=== PATIENT | female | born 2000 | race Two or more races ===

== ENCOUNTER 2020-07-26 09:29 | Emergency (ER) | payer OTHER, BC, MEDICAID, SELFPAY ==
--- NOTE | ~2020-07-26 | CT_ITS ---
EXAMINATION: CT HEAD WITHOUT CONTRAST CLINICAL INFORMATION: Left head injury. COMPARISON: None TECHNIQUE: Contiguous axial imaging was performed from the skull base to vertex without intravenous administration of contrast. Additional 2-D coronal and sagittal reformatted images are generated on the CT workstation and uploaded to PACS. This CT examination was performed using dose optimization techniques as appropriate, variously including the following: *Automated exposure control *Adjustment of mA and/or kV according to patient size (this includes techniques or standardized protocols for targeted exams where dose is matched to indication/reason for exam; i.e. extremities or head) *Use of iterative reconstruction technique DLP: 620 mGy-cm FINDINGS: There is no intracranial hemorrhage, hematoma, or extra-axial fluid collection. The ventricles are normal in size. There is no hydrocephalus, edema, or mass effect. The may-white matter differentiation appears symmetric. There is no visible acute territorial infarct or mass lesion. The calvarium appears intact. There is no pneumocephalus or orbital emphysema. The visualized sinuses and middle ears and mastoid air cells show no significant mucosal thickening. There are no air-fluid levels. CT/CT head/brain wo con IMPRESSION: Normal noncontrast CT head.
[2020-07-26 09:47] VITALS: BP 119/81; PULSE 99; RESP 18; TEMP 36.6; O2SAT 97; BMI 32.9
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
[2020-07-26 10:08] LABS: UPreg QC Valid YES; Urine Pregnancy NEGATIVE (NEGATIVE)
== END 2020-07-26 10:58 | disposition home or self-care (01) ==
LOC: HO.ED 09:55
PROVIDERS: Emergency Provider Emergency Medicine; PCP Pediatrics
DX: S06.0X0A Concussion without loss of consciousness, initial encounter (principal); S09.90XA Unspecified injury of head, initial encounter; Y00.XXXA Assault by blunt object, initial encounter; Y93.89 Activity, other specified; Y92.218 Other school as the place of occurrence of the external cause; Y99.0 Civilian activity done for income or pay
CPT/HCPCS: 70450; 81025; 99283; 99284

== ENCOUNTER 2020-08-01 15:40 | Emergency (ER) | payer BC, MEDICAID, SELFPAY ==
[2020-08-01 16:00] VITALS: BP 118/72; PULSE 78; RESP 18; TEMP 36.3; O2SAT 98; BMI 32.9
[2020-08-01 18:00] VITALS: BP 120/84; PULSE 91; RESP 14
--- NOTE | 2020-08-01 19:21 | ED_ITS ---
HPI - Headache General Chief Complaint: Headache Stated Complaint: HEAD PRESSURE Time Seen by Provider: 08/01/20 19:07 Source: patient Mode of arrival: ambulatory Limitations: no limitations History of Present Illness HPI Narrative: 20-year-old female with recent head injury, evaluated in the emergency department on 07/26/[address] with a negative head CT with suspected concussion presents with intermittent head pressure. Patient states that the medications that she was given are not effective. She does not describe any fevers, chills, changes in vision, loss of balance, symptoms indicating cauda equina, nausea, vomiting, diarrhea, constipation, difficulty moving extremities, chest pain or pressure, palpitations, shortness of breath, or any other concerning symptoms. MD elicited complaint: headache Pertinent past history: recent trauma Onset (ago): week(s) Location: left Severity: moderate Quality & Timing: aching, throbbing, intermittent and pressure Relieving factors: nothing Associated symptoms: none Treatments prior to arrival: acetaminophen, ibuprofen and antiemetic Related Data Previous Rx's Medication Instructions Recorded cyclobenzaprine 10 mg PO TID PRN #14 tab 07/26/20 ibuprofen 600 mg PO Q6H PRN #30 tab 07/26/20 ondansetron 4 mg PO Q8H PRN #20 tab 07/26/20 hifauqwjpn-kellbpnnwqwny-rdvp 2 cap PO Q4-6H PRN #14 cap 08/01/20 [Fioricet] Allergies Allergy/AdvReac Type Severity Reaction Status Date / Time No Known Allergies Allergy Verified 07/26/20 09:50 Review of Systems Review of Systems: Constitutional: Positive headache, No Fever, No Chills ENT/Mouth: No Ear Pain, No Hoarseness, No sore throat Eyes: No Eye Pain, No Swelling, No Redness, No Foreign Body Cardiovascular: No Chest Pain, No SOB Respiratory: No Cough, No Dyspnea Gastrointestinal: No Nausea, No Vomiting, No Diarrhea, No abdominal Pain Genitourinary: No Dysuria, No Hematuria Musculoskeletal: No joint pain, No Myalgias, No Joint Swelling Skin: No Skin lacerations, No rash Neuro: No Weakness, No Numbness, No Paresthesias, No Loss of Consciousness, No Dizziness Psych: No Anxiety/Panic, No Depression Heme/Lymph: no easy bruising, no Lymphadenopathy Endocrine: No Polyuria, No Polydipsia Yes all other systems are reviewed and are negative [facility] Past Medical History Attestation statement: The following information was validated with the patient. Source: old records reviewed Medical History No known health problems Surgical History H/O eye surgery Social History Social History Smoking Status: Never smoker Advance Directives: No Advance Directives Information Provided: Yes Physical Exam Vital Signs: Vital Signs: Last Vital Signs Temp 90 F L 08/01/20 19:34 Pulse 90 08/01/20 19:34 Resp 16 08/01/20 19:34 BP 156/82 H 08/01/20 19:34 Pulse Ox 99 08/01/20 19:34 Body Mass Index 32.9 Appearance: Alert. Oriented X3. No acute distress. Head: Normal external exam. Normocephalic. Atraumatic. No Pedersen signs noted. No raccoon eyes noted Eyes: PERRLA. EOMI. Conjunctiva and sclera normal. Eyelids normal. ENT: TM's Normal. Pharynx normal. Uvula midline. Moist mucous membranes. No trismus noted. No drooling noted. No muffled voice noted. Neck: Normal inspection. Neck supple. No adenopathy. Thyroid Normal. No meningeal signs. CVS: Normal heart rate and rhythm. Heart sound normal. No murmurs noted. Pulses equal to all extremities. Respiratory: No respiratory distress. Painless inspiration. Breath sounds normal. No wheezes/rales/rhonchi noted. Chest nontender. No accessory muscle usage noted or decreased air movement noted. Abdomen: Soft and nontender. Bowel sounds normal in all 4 quadrants. No distention noted. No organomegaly noted. No visible injury noted. Back: No CVA tenderness. Full range of motion noted. Skin: Skin warm and dry. Normal skin color. Normal skin turgor. No rashes/lesions/lacerations noted. Extremities: No lower extremity edema. Extremities exhibit normal range of motion. Extremities nontender. Neuro: cranial nerves 2-12 intact, no focal neural deficits, strength 5/5 to all extremities, No motor deficit. No sensory deficit. Patellar Reflexes normal. NIH Stroke Scale Internal: Initial- Upon Arrival Level of Consciousness: Alert Level of Consciousness Questions: Answers both questions correctly Level of Consciousness Commands: Performs both tasks correctly Best Gaze: Normal Visual: No visual loss Facial Palsy: Normal Motor Arm (Right): No drift Motor Arm (Left): No drift Motor Leg (Right): No drift Motor Leg (Left): No drift Limb Ataxia: Absent Sensory: Normal Best Language: No aphasia Dysarthia: Normal Extinction and Inattention: No abnormality Score: 0 Course Course Course Narrative: 20-year-old female presents with persistent headache after head injury that occurred on 07/26/[address] scan. Patient is neurologically intact, has a negative Romberg, cranial nerves 2-12 intact, NIH stroke scale is 0. Symptoms most likely consistent with post concussive syndrome. Will provide Fioricet for headache. Patient is advised to follow up with work connection post concussive syndrome, she did try to get into her primary care physician's office however since this is a work related injury they would not accept her. Patient agrees with plan of care, verbalized understanding of discharge instructions and agrees to discharge home. MDM - Headache Differential Diagnosis Differential diagnosis: Likely migraine, tension headache, headache and postconcussion syndrome Medical Records Attestation: I reviewed the patient's medical records. Discharge Plan Discharge Clinical Impression: Postconcussion syndrome Patient Disposition: Home, Self-Care Instructions: Post Concussion Syndrome (ED), Chronic Post Traumatic Headache (ED) Additional Instructions: Please follow-up with work connection for post concussive syndrome. I prescribed Fioricet for for headaches as your Tylenol, Motrin, and Flexeril are ineffective. Thank you for choosing this emergency department for evaluation. Please follow-up with primary care physician as needed. Return to the emergency department for any new, concerning, or worsening symptoms. Prescriptions: New aefntvbyyr-ndkgshialhefw-guat [Fioricet] 50-300-40 mg capsule 2 cap PO Q4-6H PRN (Reason: pain) Qty: 14 RF: 0 No Action cyclobenzaprine 10 mg tablet 10 mg PO TID PRN (Reason: muscle spasm) Qty: 14 RF: 0 ibuprofen 600 mg tablet 600 mg PO Q6H PRN (Reason: pain) Qty: 30 RF: 0 ondansetron 4 mg tablet,disintegrating 4 mg PO Q8H PRN (Reason: nausea and vomiting) Qty: 20 RF: 0 Referrals: Cristi Robbins MD [Physician] - 2 days (Post concussive syndrome, 1st evaluated on 07/26/2020) Stand Alone Forms: Work/School Release Interventions: ED Discharge Assessment Last Done: 08/01/20 19:39 Discharge Date/Time: 08/01/20 19:40
[2020-08-01] MEDS: Butalb/Acetamin/Caff 50/325/40 TABLET 1 TAB PO (19:26)
[2020-08-01 19:34] VITALS: BP 156/82; PULSE 90; RESP 16; TEMP 32.2; O2SAT 99
== END 2020-08-01 19:40 | disposition home or self-care (01) ==
PROVIDERS: Emergency Provider Internal Medicine
DX: Z04.2 Encounter for examination and observation following work accident (principal); F07.81 Postconcussional syndrome; R51.9 Headache, unspecified
CPT/HCPCS: 99283; 99284

== ENCOUNTER → 2020-08-06 11:10 | Outpatient (BNVA) | payer OTHER, SELFPAY | PROVIDERS: Visit Provider Physician Assistant | DX: S00.81XD Abrasion of other part of head, subsequent encounter (principal); W22.8XXD Striking against or struck by other objects, subsequent encounter | CPT/HCPCS: 99203 ==

== ENCOUNTER → 2020-08-14 11:24 | Outpatient (BNVA) | payer OTHER, SELFPAY | PROVIDERS: Visit Provider Internal Medicine | DX: S06.0X9D Concussion with loss of consciousness of unspecified duration, subsequent encounter (principal); X58.XXXD Exposure to other specified factors, subsequent encounter; R51.9 Headache, unspecified | CPT/HCPCS: 99213 ==

== ENCOUNTER → 2020-08-21 11:41 | Outpatient (BNVA) | payer OTHER, SELFPAY | PROVIDERS: Visit Provider Physician Assistant | DX: S06.9X0D Unspecified intracranial injury without loss of consciousness, subsequent encounter (principal); X58.XXXD Exposure to other specified factors, subsequent encounter | CPT/HCPCS: 99213 ==

== ENCOUNTER → 2020-08-29 13:13 | Outpatient (BNVA) | payer OTHER, SELFPAY | PROVIDERS: Visit Provider Physician Assistant | DX: S06.0X9D Concussion with loss of consciousness of unspecified duration, subsequent encounter (principal); X58.XXXD Exposure to other specified factors, subsequent encounter | CPT/HCPCS: 99213 ==

== ENCOUNTER → 2020-09-12 15:14 | Outpatient (BNVA) | payer OTHER, SELFPAY | PROVIDERS: Visit Provider Physician Assistant | DX: S09.90XD Unspecified injury of head, subsequent encounter (principal); X58.XXXD Exposure to other specified factors, subsequent encounter | CPT/HCPCS: 99213 ==

== ENCOUNTER → 2020-09-24 15:11 | Outpatient (BNVA) | payer OTHER, SELFPAY | PROVIDERS: Visit Provider Physician Assistant | DX: S06.9X0D Unspecified intracranial injury without loss of consciousness, subsequent encounter (principal); X58.XXXD Exposure to other specified factors, subsequent encounter | CPT/HCPCS: 99213 ==

== ENCOUNTER 2021-12-16 13:55 | Outpatient (REF) | payer BC, SELFPAY ==
[2021-12-16 14:42] LABS: Influenza A PCR NEGATIVE (Negative); Influenza B PCR NEGATIVE (Negative); Resp Syncy Virus RNA Qual PCR NEGATIVE (Negative); SARS COV2 PCR INHOUSE NEGATIVE (Negative)
== END 2021-12-16 13:56 | disposition home or self-care (01) ==
LOC: HO.LNP 13:55
PROVIDERS: Visit Provider Internal Medicine
DX: Z20.822 Contact with and (suspected) exposure to COVID-19 (principal); R43.9 Unspecified disturbances of smell and taste
CPT/HCPCS: 0241U

== ENCOUNTER 2022-01-13 01:04 | Emergency (ER) | payer BC, SELFPAY ==
[2022-01-13 01:40] VITALS: BP 123/100; PULSE 80; RESP 18; TEMP 36.9; O2SAT 97; BMI 33.8
[2022-01-13 02:12] LABS: COVID-19 Test Negative (Negative)
[2022-01-13 06:52] VITALS: BP 129/72; PULSE 86; RESP 16; O2SAT 98
--- NOTE | 2022-01-13 07:12 | ED.URI ---
HPI - URI/Sore Throat General Chief Complaint: Upper Respiratory Symptoms Stated Complaint: cough, trouble breathing, congestion Time Seen by Provider: 01/13/22 06:36 Source: patient Mode of arrival: ambulatory History of Present Illness HPI Narrative: 21-year-old female without significant past medical history of asthma or cigarette smoking presents for cough, congestion, fever/ chills, sore throat since morning and although symptoms have gradually improve she has some concerns regarding a rash on her face. She has also had some mild nausea but otherwise denies any diarrhea or urinary symptoms. She denies any COVID-19 exposure. Related Data Allergies Allergy/AdvReac Type Severity Reaction Status Date / Time No Known Allergies Allergy Verified 12/16/21 10:59 Review of Systems Review of Systems: Pertinent positives and negatives as stated in HPI 10 point review of systems is otherwise negative. PMFSH Past Medical History Source: nursing notes reviewed Medical History No known health problems Surgical History H/O eye surgery Social History Social History Advance Directives: No Advance Directives Information Provided: No Physical Exam Vital Signs: Vital Signs: Last Vital Signs Temp 98.5 F 01/13/22 01:40 Pulse 86 01/13/22 06:52 Resp 16 01/13/22 06:52 BP 129/72 01/13/22 06:52 Pulse Ox 98 01/13/22 06:52 O2 Del Method 01/13/22 06:52 BMI result Body Mass Index 33.8 VITAL SIGNS: Reviewed. GENERAL: Well developed, well nourished, in no acute distress. HEAD: Normocephalic/atraumatic EYES: PERRLA, EOMI EARS: Ext canals without abnormality, TMs non-bulging and non-erythematous NOSE: Bilateral nasal congestion with boggy turbinates OROPHARYNX: no oral lesions noted, posterior pharynx clear but erythematous without noted tonsillar enlargement/erythema/exudates NECK: Supple, no adenopathy LUNGS: Normal breath sounds. No adventitious sounds or accessory muscle use. SpO2<98> CARDIOVASCULAR: Regular rate and rhythm without noted murmurs ABDOMEN: Soft, non-tender, non-distended with bowel sounds. MUSCULOSKELETAL: No tenderness, deformities, or effusions noted on gross inspection. EXTREMITIES: No cyanosis, clubbing or edema. SKIN: Inspection of the skin reveals but very fine rash along the face NEUROLOGIC: Alert and oriented x 4. Strength and sensation to light touch were grossly intact x 4. Course Course Course Narrative: 21-year-old female with history and clinical presentation most consistent with viral URI with consistent viral exanthem no concerns for bacterial sinusitis at this time and on review of all investigations there are no acute findings. Patient received throat lozenge, and combination analgesics as well as cough suppressant. She is otherwise discharged home in stable condition. MDM - URI/Sore Throat Lab Data Labs: Lab Results 01/13/22 Range/Units 01:43 COVID-19 ([facility]) Negative (Negative) COVID-19 Clin Com See Note Discharge Plan Discharge Clinical Impression: Upper respiratory tract infection, Viral exanthem Patient Disposition: Home, Self-Care Instructions: Upper Respiratory Infection (ED), Viral Exanthem (ED) Additional Instructions: 1. Recommend sztu-rbv-nmxlvat Tylenol/ ibuprofen as needed for body aches, headaches, temperatures greater than 100.4. Increase the amount of water that you are drinking. 2. Recommend bedside cool mist humidifier for symptom relief at night. Axkr-now-thgtxys Cepacol for sore throat and recommend any cough suppressant such as NyQuil/Robitussin. 3. Follow-up with your primary care provider next 1-2 days. Return to the ER for worsening symptoms. Stand Alone Forms: Work/School Release
[2022-01-13] MEDS: Acetaminophen 325 MG TABLET 975 MG PO (07:26)
[2022-01-13] MEDS: Benzonatate 100 MG CAPSULE PO (07:26)
[2022-01-13] MEDS: Throat Lozenge, Medicated LOZENGE 1 LOZENGE MUCOUS MEM (07:26)
[2022-01-13] MEDS: Ketorolac Tromethamine 15 MG/ML VIAL IM (07:26)
== END 2022-01-13 07:35 | disposition home or self-care (01) ==
PROVIDERS: Emergency Provider Student in an Organized Health Care Education/Training Program
DX: J06.9 Acute upper respiratory infection, unspecified (principal); B09 Unspecified viral infection characterized by skin and mucous membrane lesions; Z20.822 Contact with and (suspected) exposure to COVID-19; J02.9 Acute pharyngitis, unspecified
CPT/HCPCS: 87635; 96372; 99284; J1885

== ENCOUNTER 2023-01-06 13:24 | Outpatient (AMB) | payer BC, SELFPAY ==
[2023-01-06 13:25] VITALS: BP 124/76; PULSE 86; O2SAT 99; BMI 34.6
--- NOTE | 2023-01-06 13:25 | MHC.PC.OV ---
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 Previous PCP at [facility] about 2 years ago. Medical history significant for anxiety-patient reports smoking marijuana - interested in counseling referral, obesity, upper back pain due to large breast - patient reports that in the past she was told to lose weight in order for her back pain to go away. Patient reports taking intermittently Advil for pain with minimal improvement. Patient also reports bilateral shoulder pains. Patient also reports wearing sports bra large/extra large. Patient reports tetanus vaccine within 10 years. Patient has an upcoming dental exam. No problems with eyes, does not see eye doctor. Also discussed patient's need for Pap smear. 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 [facility] Medical History Upper respiratory tract infection No known health problems Surgical History H/O eye surgery Social History Housing: Apartment Patient Tobacco Use Status: Never used Tobacco service: No Current occupational status: employed Cognitive needs: No Hearing needs: No Vision needs: No Questionnaire PHQ-9 Over the last 2 weeks, how often have you been bothered by any of the following problems? 1. Little interest or pleasure in doing things: not at all 2. Feeling down, depressed, or hopeless: not at all 3. Trouble falling or staying asleep, or sleeping too much: not at all 4. Feeling tired or having little energy: not at all 5. Poor appetite or overeating: not at all 6. Feeling bad about yourself - or that you are a failure or have let yourself or your family down: not at all 7. Trouble concentrating on things, such as reading the newspaper or watching television: not at all 8. Moving or speaking so slowly that other people could have noticed. Or the opposite - being so fidgety or restless that you have been moving around a lot more than usual: not at all 9. Thoughts that you would be better off or of hurting yourself in some way: not at all Total score: 0 Depression Screening Interpretation: Negative Depression Screening Done: Yes 37697 - PHQ-9 Billing: Yes Source: Developed by Drs. Diaz Lowe, Toyin Mart, Eduardo Grover and colleagues, with an educational elkin from [email or web address]. Thrive Questionnaire Date Thrive assessed: 01/06/23 I am a: Patient What is your living situation today?: I have a steady place to live Within the past 12 months, did the food you bought not last and you didn't have the money to get more?: Never true Within the past 12 months, did you worry whether your food would run out before you got money to buy more?: Never true Do you have trouble paying for medicines?: No Do you have trouble getting transportation to medical appointments?: No Do you have trouble paying your heating and electricity bill?: No Do you have trouble taking care of your child, family member or friend?: No Do you have trouble with day-to-day activities such as bathing, preparing meals, shopping, managing finances, etc.?: No Are you currently unemployed and looking for a job?: No Are you interested in more education?: No Currently or been in a relationship where the following occur: no concerns reported AUDIT C Alcohol Use Questionnaire (AUDIT-C) 1. How often do you have a drink containing alcohol?: Never 3. How often do you have six or more drinks on one occasion?: Never Total Score: 0 Score Reviewed/Action Taken: No KASSI-7 AMB Questionnaire KASSI-7 Date KASSI - 7 assessed: 02/04/23 Feeling nervous, anxious, or on edge: 2 = More than half the days Not being able to stop or control worryin = More than half the days Worrying too much about different things: 2 = More than half the days Trouble relaxin = More than half the days Being so restless that it is hard to sit still: 2 = More than half the days Becoming easily annoyed or irritable: 2 = More than half the days Feeling afraid as if something awful might happen: 0 = Not at all Total KASSI-7 score (0-4 normal; 5-9 mild; 10-14 moderate; 15-21 severe): 12 Source: Developed by Drs. Diaz Lowe, Toyin Mart, Eduardo Grover and colleagues, with an educational elkin from [email or web address]. KASSI-7 Assessment Billing KASSI-7 Assessment Tool: KASSI-7 Assessment 32116 Review of Systems Const Denies body aches, Denies chills, Denies fever(s) and Denies headache(s) Eyes Denies change in vision ENT Denies dizziness, Denies otalgia, Denies headache(s), Denies nasal discharge, Denies sinus pain and Denies sore throat Card Denies chest pain, Denies edema, Denies lightheadedness and Denies dyspnea Resp Denies cough, Denies dyspnea and Denies wheezing GI Denies abdominal pain, Denies constipation, Denies diarrhea, Denies nausea and Denies vomiting Denies dysuria Musc Reports back pain, Denies myalgias, Reports arthralgias, Denies numbness and Denies tingling Skin/Breast Reports as per HPI and Denies rash Neuro Denies dizziness, Denies headache(s), Denies numbness and Denies tingling Aller/Immun Denies wheezing Physical exam (Primary Care) Vital Signs: Last Vital Signs Pulse 86 01/06/23 13:25 BP 124/76 01/06/23 13:25 Pulse Ox 99 01/06/23 13:25 Oxygen Delivery Method Room Air 01/06/23 13:25 BMI result Body Mass Index 34.6 Tobacco/Smoking Status: Tobacco use Status Tobacco use date assessed 01/06/23 01/06/23 13:31 Patient Tobacco Use Status Never used Tobacco 01/06/23 13:31 PHQ-9: PHQ-9 Score PHQ-9: Total score 0 01/06/23 13:31 Depression Screening Interpretation: Negative Thrive Assessment: Date of Thrive Assessment Date Thrive assessed 01/06/23 01/06/23 13:31 Currently or been in a relationship where the following occur: no concerns reported Const General: cooperative and no acute distress Orientation/consciousness: patient oriented x3 HENMT Head: Yes normocephalic and Yes atraumatic Ears: TM's normal bilaterally Face and sinus: Yes sinuses nontender Mouth: oropharynx normal and moist mucous membranes Throat: Yes posterior oropharynx normal Eyes General: appearance normal, both eyes and all related structures Pupils: Equal, round and reactive pupils present EOM: EOMs intact bilaterally Neck Neck: Yes normal visual inspection, Yes full ROM and Yes no lymphadenopathy Thyroid: Thyroid normal Resp Effort & Inspection: normal respiratory effort and able to speak in complete sentences Auscultation: clear to auscultation bilaterally, no crackles, no rales, no rhonchi and no wheezes Cardio Rate: regular rate Rhythm: regular rhythm Heart sounds: S1 normal heart sound present, S2 normal heart sound present and no murmurs GI Palpation (GI): Soft to palpation, not firm, nontender, no guarding, not rigid and no hepatosplenomegaly Auscultation: normal bowel sounds General: No CVA tenderness Back/Spine/Pelvis Back: No CVA tenderness Thoracic/Lumbar Spine: thoraco-lumbar ROM normal, No paraspinal muscle tenderness, thoracic spinal tenderness and No lumbar spinal tenderness Skin General skin exam: no rashes or lesions noted Neuro General: patient oriented x3 Cranial nerves: Yes Equal, round and reactive pupils present Gait exam (Neuro): Normal gait present Extrem General: Yes full ROM and No edema Office Procedures Flu Questionnaire Does the patient have a severe egg allergy?: No Does the patient have severe life threatening allergies?: No Does the patient have a fever or illness today?: No Has the patient ever had Guillain-Rosebush Syndrome?: No Has the patient ever had any past reaction to a flu shot?: No Immunizations flu vacc [id number] 6mos up(PF) 60 mcg(15 mcgx4)/0.5 mL IM syringe Performing Provider: KASHMIR De La Cruz Performing Location: [facility] Administered by: LONG Dubois on 01/06/23 13:33 Dose Route Admin Location Dispensed Lot Number Expiration Date NDC Manager Crisis 0.5 mL IM Left Deltoid 0.5 mL [id number] 10/04/23 78821-363-52 [employer] VIS Given Date VIS Provided VIS Publication Date 01/06/23 Single Vaccine 20 Eligibility Eligibility Date Funding Source Not [facility] Eligible 01/06/23 Private Assessment and Plan Assessment & Plan (1) Large breasts: Code(s): N62 - Hypertrophy of breast Plan: Will refer to physical therapy for back pain Follow-up after physical therapy if no improvement in pain Patient also was encouraged to wear wide straps bras (2) Obesity (BMI 30-39.9): Code(s): E66.9 - Obesity, unspecified Plan: Healthy food choices and exercise as tolerated Weight management referral (3) Upper back pain: Code(s): M54.9 - Dorsalgia, unspecified Plan: Thoracic spine with tenderness suspect musculoskeletal Will refer to physical therapy Start ibuprofen 600 mg every 8 hours as needed Start cyclobenzaprine 5 mg at bedtime p.r.n.-educated about drowsiness (4) Cervical cancer screening: Code(s): Z12.4 - Encounter for screening for malignant neoplasm of cervix (5) Anxiety: Code(s): F41.9 - Anxiety disorder, unspecified Plan: Counseling referral Start hydroxyzine 10 mg b.i.d. p.r.n.-educated about drowsiness (6) Adult general medical exam: Comment: Tetanus IZ within 10 years per pt. Code(s): Z00.00 - Encounter for general adult medical examination without abnormal findings Orders: Orders Vitamin B12 and Folate Today F41.9 - Anxiety disorder, unspecified Comprehensive Met. Panel Today F41.9 - Anxiety disorder, unspecified Influenza [id number] Immunization Today Z23 - Encounter for immunization Vitamin D 25-OH Total Today F41.9 - Anxiety disorder, unspecified TSH reflex Free T4 Today F41.9 - Anxiety disorder, unspecified Complete Blood Count Auto Diff Today F41.9 - Anxiety disorder, unspecified PT Evaluation and Treatment Today M54.9 - Dorsalgia, unspecified Referrals Medical Weight Management Referral E66.9 - Obesity, unspecified Counseling Referral F41.9 - Anxiety disorder, unspecified EXHIBITION CARVER Referral Z12.4 - Encounter for screening for malignant neoplasm of cervix Medications: New hydroxyzine HCl 10 mg PO BID PRN 14 tabs 0RF anxiety F41.9 - Anxiety disorder, unspecified ibuprofen 600 mg PO Q8H PRN 30 tabs 0RF pain M54.9 - Dorsalgia, unspecified cyclobenzaprine 5 mg PO BEDTIME PRN 7 tabs 0RF muscle spasm M54.9 - Dorsalgia, unspecified Coding Level of Care Code New Pt Prev Care 18-39yr(36924 Diagnoses Large breasts N62 Obesity (BMI 30-39.9) E66.9 Upper back pain M54.9 Cervical cancer screening Z12.4 Anxiety F41.9 Adult general medical exam Z00.00 Additional Codes KASSI-7 Assessment Billing - KASSI-7 Assessment Tool: KASSI-7 Assessment 15043 ([id number])
== END 2023-01-06 13:54 | disposition home or self-care (01) ==
PROVIDERS: PCP Nurse Practitioner Family; Visit Provider Nurse Practitioner Family
DX: Z00.00 Encounter for general adult medical examination without abnormal findings (principal); N62 Hypertrophy of breast; E66.9 Obesity, unspecified; Z23 Encounter for immunization; M54.9 Dorsalgia, unspecified; F41.9 Anxiety disorder, unspecified; Z68.34 Body mass index [BMI] 34.0-34.9, adult
CPT/HCPCS: 90471; 90686; 99385

== ENCOUNTER 2023-06-11 12:53 | Outpatient (REF) | payer BC, SELFPAY ==
[2023-06-11 18:30] LABS: CT PCR NOT DETECTED (Not Detect.); NG PCR NOT DETECTED (Not Detect.)
[2023-06-12 09:52] LABS: BV Int Neg Control Negative (Negative); BV Int Pos Control Positive (Positive)
[2023-06-17 12:49] LABS: HPV mRNA E6/E7 Not Detected (Not Detected)
== END 2023-06-11 12:54 | disposition home or self-care (01) ==
LOC: HO.LAB 12:53
PROVIDERS: PCP Nurse Practitioner Family; Visit Provider Advanced Practice Midwife
DX: Z01.419 Encounter for gynecological examination (general) (routine) without abnormal findings (principal); Z11.51 Encounter for screening for human papillomavirus (HPV); Z20.2 Contact with and (suspected) exposure to infections with a predominantly sexual mode of transmission
CPT/HCPCS: 0353U; 87480; 87510; 87624; 87660; 88142

== ENCOUNTER 2023-06-11 12:53 | Outpatient (AMB) | payer BC, SELFPAY ==
--- NOTE | 2023-06-11 13:05 | A.OFFVIS_ITS ---
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 She is due for her 1st Pap. She is sexually active but with her partner of 8 years who is female they met in high school. She has no concerns at all about childbearing or plans to but in the future they may want to have a child together but her partner would carry the . She does get painful periods they are not too heavy but they are painful and she does kno w that control methods can be used to deal with dysmenorrhea but after some discussion of all the options she has not interested in any of them at this time. She also has what she perceives as very large breasts and they are causing her a lot of back pain and she was told by her primary that it would be recommended to lose weight 1st before considering breast reduction surgery which I concur with. She has embarked in the last year on steadfast efforts to lose weight and has gone from 212-172 lb today and has been working out at [employer] and eating well and is well on her journey To healthier self. She does have questions about where she and her partner would seek help getting when the time comes and we did discuss that during this visit as well Patient had 1st Pap and testing for STIs discharge completely within normal limits she did find it somewhat uncomfortable she said that while they are sexually active there usually is no penetration of anything. She tried tampons ones but found it uncomfortable discussed the placement of tampons and how to do it in a more comfortable way and make sure it is in far enough in that usually meats with more success. [facility] Medical History Upper respiratory tract infection No known health problems Surgical History H/O eye surgery Social History Housing: Apartment Patient Tobacco Use Status: Never used Tobacco service: No Current occupational status: employed Cognitive needs: No Hearing needs: No Vision needs: No Female Reproductive History Menstrual Age of Menarche: 11 Duration of menses: 3-5 days Date of last menstrual period: 05/18/23 control method: none Total pregnancies: 0 History of abnormal pap smear: No (no previous pap) Physical Exam Vital Signs: Last Vital Signs BP 112/60 06/11/23 13:07 BMI result Body Mass Index 31.5 Const General: healthy appearing, comfortable, no acute distress, well developed and alert Nutritional Appearance: average body habitus Orientation/consciousness: patient oriented x3 Limitations: no limitations HEENT Head: Yes normocephalic Neck Neck: Yes normal visual inspection Chest Chest palpation & inspection: normal inspection of the chest Breast/axilla inspection: normal inspection of the breasts and normal inspection of the axillae Breast/axilla palpation: normal palpation of the breasts and normal palpation of the axillae Resp Effort & Inspection: normal respiratory effort GI Inspection: Yes normal to inspection, No Abdominal wall edema and No distended Palpation (GI): Soft to palpation and nontender General: Yes bladder normal to palpation External Female Exam: normal external appearance and normal appearance of the urethra Speculum Exam - Vagina: normal appearance of the vagina, normal palpation and normal vaginal discharge Speculum Exam - Cervix: normal appearance of the cervix, normal palpation and nontender Bimanual exam- vagina & uterus: normal bimanual exam, normal palpation, uterine size normal, bladder normal to palpation, consistency normal, normal palpation, uterine mobility normal, uterine shape normal, No Cervical tenderness present, non-tender and no cervical motion tenderness Bimanual Exam- Adnexa, other: normal adnexae, no masses, normal and No adnexal tenderness Neuro General: patient oriented x3 Assessment & Plan Assessment & Plan (1) Upper back pain: Code(s): M54.9 - Dorsalgia, unspecified (2) Cervical cancer screening: Comment: First Pap done 06/11/2023 Code(s): Z12.4 - Encounter for screening for malignant neoplasm of cervix (3) Encounter for screening examination for sexually transmitted disease: Code(s): Z11.3 - Encounter for screening for infections with a predominantly sexual mode of transmission (4) Dysmenorrhea, unspecified: Code(s): N94.6 - Dysmenorrhea, unspecified Plan 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 She is due for her 1st Pap. She is sexually active but with her partner of 8 years who is female they met in high school. She has no concerns at all about childbearing or plans to but in the future they may want to have a child together but her partner would carry the . She does get painful periods they are not too heavy but they are painful and she does know that control methods can be used to deal with dysmenorrhea but after some discussion of all the options she has not interested in any of them at this time. She also has what she perceives as very large breasts and they are causing her a lot of back pain and she was told by her primary that it would be recommended to lose weight 1st before considering breast reduction surgery which I concur with. She has embarked in the last year on steadfast efforts to lose weight and has gone from 212-172 lb today and has been working out at [employer] and eating well and is well on her journey To healthier self. She does have questions about where she and her partner would seek help getting when the time comes and we did discuss that during this visit as well Patient had 1st Pap and testing for STIs discharge completely within normal limits she did find it somewhat uncomfortable she said that while they are se xually active there usually is no penetration of anything. She tried tampons ones but found it uncomfortable discussed the placement of tampons and how to do it in a more comfortable way and make sure it is in far enough in that usually meats with more success. -----Discussed in this visit the following: healthy balanced diet, regular and consistent exercise, getting recommended health screens, doing the best she can for her particular health concerns, kegel exercises, pap smear screening and followup recommendations, mammography screening and SBE, normal changes in cycles in her life stage--- . Discussed normal jasson the vagina she sometimes feels she has an odor it has not fishy it has not really bad discussed the normal jasson and how that can impact odor and some of it maybe within normal limits and it can also change throughout the cycle as well Discussed her dysmenorrhea and options and reviewed every single method of control and their effect on menses and menstrual cramps and how they may be an option she has not interested at this time but she may be in the future and she will just see. She has lost weight by eating better and working out and she is lost from over 212-170 2 today and I congratulated her on her efforts. She has been bothered by her large breasts and upper back pain and discussed posture and congratulated her on her excellent efforts at weight loss and to continue with the weight loss and her breasts may in fact get smaller and she may not need to consider breast reduction surgery after all. Also discussed all of the control methods currently available and their effect on menses and which ones are sometimes used to be helpful to make menses double bottom driver and therefore less painful and less crampy Also discussed options to seek assistance with reproductive efforts and they would range from [facility] reproductive endocrinology to possibly somebody in the [facility] system. Also discussed the availability of care at [facility] midwifery for future reference. Orders: Orders Pap Smear Today Z01.419 - Encounter for gynecological examination (general) (routine) without abnormal findings CT NG by PCR Today Z01.419 - Encounter for gynecological examination (general) (routine) without abnormal findings Bacterial Vaginosis Panel Today Z20.2 - Contact with and (suspected) exposure to infections with a predominantly sexual mode of transmission Coding Level of Care Code New Pt Prev Care 18-39yr([id number] Diagnoses Upper back pain M54.9 Cervical cancer screening Z12.4 Encounter for screening examination for sexually transmitted disease Z11.3 Dysmenorrhea, unspecified N94.6
[2023-06-11 13:07] VITALS: BP 112/60; BMI 31.5
== END 2023-06-11 13:53 | disposition home or self-care (01) ==
LOC: HO.HWSM 12:54
PROVIDERS: PCP Nurse Practitioner Family; Visit Provider Advanced Practice Midwife
DX: Z01.419 Encounter for gynecological examination (general) (routine) without abnormal findings (principal); N94.6 Dysmenorrhea, unspecified; M54.9 Dorsalgia, unspecified
CPT/HCPCS: 99385

== ENCOUNTER 2024-03-31 15:31 | Outpatient (AMB) | payer BC, SELFPAY ==
--- NOTE | 2024-03-31 15:34 | MHC.PC.OV ---
Vital Signs 03/31/24 15:35 Height 5 ft 2 in Weight 169 lb 8 oz BMI 31.0 BP 110/64 Blood Pressure Location Lt brachial Position Sitting Pulse 85 Pulse Source Pulse Oximeter Pulse Oximetry (%) 98 Oxygen Delivery Method Room Air Intake Visit Reasons: Annual Physical Intake Note: Patient is here today for a physical. Pt decline flu shot today. Salad Maker Required: No Envelope Stuffer: Present Accompanied by: Spouse Allergies No Known Allergies Allergy (Verified 03/31/24 16:08) Medication List - Last Reconciled 03/31/24 by Rebecca Deleon PA-C No Known Home Meds Tobacco use date assessed: 03/31/24 Dental Screening Dental Screen Date: 03/31/24 Did you have a dental visit in the last 12 months?: Yes Did you have a dental problem in the last 6 months where you did not have access to dental care?: No Was dental information given to patient?: Patient has dentist [facility] Medical History Upper respiratory tract infection No known health problems Surgical History H/O eye surgery Social History Housing: Apartment Alcohol intake: current Alcohol intake frequency: holidays/special occasions only Patient Tobacco Use Status: Never used Tobacco e-Cigarette/Vaping Use: Never Used Second Hand Smoke Exposure: No service: No Current occupational status: employed Cognitive needs: No Hearing needs: No Vision needs: No Female Reproductive History Menstrual Age of Menarche: 11 Questionnaire PHQ-9 Over the last 2 weeks, how often have you been bothered by any of the following problems? 1. Little interest or pleasure in doing things: several days 2. Feeling down, depressed, or hopeless: several days 3. Trouble falling or staying asleep, or sleeping too much: several days 4. Feeling tired or having little energy: several days 5. Poor appetite or overeating: not at all 6. Feeling bad about yourself - or that you are a failure or have let yourself or your family down: several days 7. Trouble concentrating on things, such as reading the newspaper or watching television: several days 8. Moving or speaking so slowly that other people could have noticed. Or the opposite - being so fidgety or restless that you have been moving around a lot more than usual: not at all 9. Thoughts that you would be better off or of hurting yourself in some way: not at all Total score: 6 Depression Screening Interpretation: Positive Depression Screening Done: Yes Source: Developed by Drs. Diaz Lowe, Toyin Mart, Eduardo Grover and colleagues, with an educational elkin from [employer]. Thrive Questionnaire Date Thrive assessed: 03/31/24 I am a: Patient What is your living situation today?: I have a steady place to live Within the past 12 months, did the food you bought not last and you didn't have the money to get more?: Sometimes True Within the past 12 months, did you worry whether your food would run out before you got money to buy more?: Sometimes True Do you have trouble paying for medicines?: No Do you have trouble getting transportation to medical appointments?: No Do you have trouble paying your heating and electricity bill?: Yes Do you have trouble taking care of your child, family member or friend?: No Do you have trouble with day-to-day activities such as bathing, preparing meals, shopping, managing finances, etc.?: No Are you currently unemployed and looking for a job?: No Are you interested in more education?: No Please select the resources that you would like help with: Food and Utilities Currently or been in a relationship where the following occur: No concerns reported THRIVE Score: 3 AUDIT C Alcohol Use Questionnaire (AUDIT-C) 1. How often do you have a drink containing alcohol?: Monthly or less 2. How many drinks containing alcohol do you have on a typical day when you are drinking?: 3 or 4 3. How often do you have six or more drinks on one occasion?: Less than monthly Total Score: 3 KASSI-7 AMB Questionnaire KASSI-7 Date KASSI - 7 assessed: 03/31/24 Feeling nervous, anxious, or on edge: 1 = Several days Not being able to stop or control worryin = Several days Worrying too much about different things: 1 = Several days Trouble relaxin = Several days Being so restless that it is hard to sit still: 0 = Not at all Becoming easily annoyed or irritable: 1 = Several days Feeling afraid as if something awful might happen: 1 = Several days Total KASSI-7 score (0-4 normal; 5-9 mild; 10-14 moderate; 15-21 severe): 6 Source: Developed by Drs. Diaz Lowe, Toyin Mart, Eduardo Grover and colleagues, with an educational elkin from [employer]. Physical exam (Primary Care) Vital Signs: Last Vital Signs Pulse 85 03/31/24 15:35 BP 110/64 03/31/24 15:35 Pulse Ox 98 03/31/24 15:35 Oxygen Delivery Method Room Air 03/31/24 15:35 BMI result Body Mass Index 31.0 Tobacco/Smoking Status: Tobacco use Status Tobacco use date assessed 03/31/24 03/31/24 15:39 Patient Tobacco Use Status Never used Tobacco 03/31/24 15:39 e-Cigarette/Vaping Use Never Used 03/31/24 15:39 PHQ-9: PHQ-9 Score PHQ-9: Total score 6 03/31/24 15:39 Depression Screening Interpretation: Positive Thrive Assessment: Date of Thrive Assessment Date Thrive assessed 03/31/24 03/31/24 15:39 Currently or been in a relationship where the following occur: No concerns reported Coding Level of Care Code Est Pt Prev Care 18-39y(81769) Diagnoses Annual physical exam Z00.00 Large breasts N62 Upper back pain M54.9 Anxiety F41.9 Assessment & Plan Assessment & Plan (1) Annual physical exam: Code(s): Z00.00 - Encounter for general adult medical examination without abnormal findings Category: Medical (2) Large breasts: Code(s): N62 - Hypertrophy of breast Category: Medical (3) Upper back pain: Code(s): M54.9 - Dorsalgia, unspecified Category: Medical (4) Anxiety: Code(s): F41.9 - Anxiety disorder, unspecified Category: Medical Plan Plan - Arrange referral for breast reduction consultation with a plastic surgeon. - Facilitate appointment with community navigator for counselor referral. - Advise patient on availability of anxiety management medications if needed. - Encourage continuation of current exercise and weight management through [employer]. - Recommend vision screening and follow up with eye doctor. - will also order fasting labs which include CBC, CMP, lipid panel, liver panel, thyroid function, vitamin-D, vitamin B12, folate, mag Orders: Orders Complete Blood Count Auto Diff Today Z00.00 - Encounter for general adult medical examination without abnormal findings Comprehensive [place]. Panel Fast Today Z00.00 - Encounter for general adult medical examination without abnormal findings Hemoglobin A1c Today Z00.00 - Encounter for general adult medical examination without abnormal findings Liver Panel Today Z00.00 - Encounter for general adult medical examination without abnormal findings TSH reflex Free T4 Today Z00.00 - Encounter for general adult medical examination without abnormal findings Vitamin B12 and Folate Today Z00.00 - Encounter for general adult medical examination without abnormal findings Lipid Panel Today Z00.00 - Encounter for general adult medical examination without abnormal findings Magnesium Today Z00.00 - Encounter for general adult medical examination without abnormal findings Vitamin D 25-OH Total Today Z00.00 - Encounter for general adult medical examination without abnormal findings C Reactive Protein Today Z11.3 - Encounter for screening for infections with a predominantly sexual mode of transmission Erythrocyte Sedimentation Rate Today Z11.3 - Encounter for screening for infections with a predominantly sexual mode of transmission Referrals Plastic Surgery Referral M54.9 - Dorsalgia, unspecified, N62 - Hypertrophy of breast Patient Instructions: Patient Instructions - Await call from community navigator within two weeks regarding counseling referral. - Consider a referral to a plastic surgeon for breast reduction consultation. - Schedule vision screening with the eye doctor upstairs. - Continue with diet and exercise regimen at [employer]. - Plan for fasting labs as discussed, ensuring to fast appropriately beforehand. - Use the patient portal for any follow-up questions or concerns. - Notify us if referred services do not contact within specified time. Scribe Plan - Not visible on output: History of Present Illness The patient is a 23-year-old female presenting for an annual physical exam. She has a history of large breasts which continue to cause significant neck and mid to upper back and chest wall pain. The patient reports these symptoms have persisted despite a substantial weight loss, dropping from 212 pounds to 169 pounds at present. The weight loss was achieved through diet and exercise, primarily at [employer]. She had sought consultation for breast reduction in the past, but was advised to lose weight before pursuing surgery. Despite the weight reduction, the symptoms remain problematic, particularly in the upper and middle back. The patient reports that the sensitivity and heaviness of her breasts exacerbate her discomfort, which is most pronounced during menstruation. She also experiences anxiety, for which she self-medicates with marijuana, and has expressed interest in pursuing counseling, although she has encountered a waitlist for such services. She is not interested in starting medication for anxiety, would like to continue marijuana and be referred to a therapist. She denies Depression, SI or HI. 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 - Exercise: Regularly attends [employer]. - Weight Management: Successfully lost weight through diet and exercise. - Substance Use: Reports smoking marijuana to manage anxiety. - Dental Care: Visits the dentist twice a year. - Vision Care: Advised to have regular screenings, has an eye doctor upstairs available. Review of Systems - Psychiatric: Reports anxiety. - Gastrointestinal: Reports sensitivity and heaviness in breasts. - Musculoskeletal: Reports upper and middle back pain. Physical Exam Appearance: Alert. Oriented X3. No acute distress. Head: Normal external exam. Normocephalic. Atraumatic. Eyes: Pupils are equal, round, and reactive to light. Extraocular movements intact. Conjunctiva and sclera normal. Eyelids normal. Ears: External auditory canal normal. Throat: Pharynx normal. Uvula midline. Moist mucous membranes. Neck: Normal inspection. Neck supple. Full range of motion. No meningeal signs. Cardiovascular: Normal heart rate and rhythm. Heart sound normal. No murmurs noted. Pulses normal throughout. Pendulous breasts. Respiratory: No respiratory distress. Painless inspiration. Breath sounds normal. No wheezes/rales/rhonchi noted. Chest nontender. No accessory muscle usage noted or decreased air movement noted. Abdomen: Soft and nontender. No distention noted. No organomegaly noted. No visible injury noted. Back: No costovertebral angle tenderness. Full range of motion noted. Reports of upper and middle back pain due to large breasts. Skin: Skin warm and dry. Normal skin color. Normal skin turgor. No rashes/lesions/lacerations noted. Extremities: Extremities exhibit normal range of motion. Extremities nontender. Neuro: Oriented X 3. No motor deficit. No sensory deficit. Reflexes normal. Results - Pap Smear: Negative result on June 11, 2023. Plan - Arrange referral for breast reduction consultation with a plastic surgeon. - Facilitate appointment with community navigator for counselor referral. - Advise patient on availability of anxiety management medications if needed. - Encourage continuation of current exercise and weight management through [employer]. - Recommend vision screening and follow up with eye doctor. - will also order fasting labs which include CBC, CMP, lipid panel, liver panel, thyroid function, vitamin-D, vitamin B12, folate, mag Patient was informed and verbally consented to the use of an ambient scribe for clinic note documentation during this visit. Discussion Notes During our discussion, I congratulated the patient on her significant weight loss, which demonstrates her dedication to managing her health. We explored the impact of her large breasts on her back pain and agreed that a referral for a plastic surgery consultation would be a prudent next step. I clarified that a mammoplasty could potentially alleviate her discomfort, and addressed her concern regarding insurance coverage, reassuring her that documentation of her symptoms should support coverage. We also discussed anxiety and current self-management with marijuana. The patient expressed a preference to continue this approach but remained open to further support via counseling. I advised her to keep in touch with our community navigator for referral progress and reviewed the option of anxiety medication if required. Patient Instructions - Await call from community navigator within two weeks regarding counseling referral. - Consider a referral to a plastic surgeon for breast reduction consultation. - Schedule vision screening with the eye doctor upstairs. - Continue with diet and exercise regimen at [employer]. - Plan for fasting labs as discussed, ensuring to fast appropriately beforehand. - Use the patient portal for any follow-up questions or concerns. - Notify us if referred services do not contact within specified time.
[2024-03-31 15:35] VITALS: BP 110/64; PULSE 85; O2SAT 98; BMI 31.0
== END 2024-03-31 15:59 | disposition home or self-care (01) ==
PROVIDERS: PCP Nurse Practitioner Family; Visit Provider Internal Medicine
DX: Z00.00 Encounter for general adult medical examination without abnormal findings (principal); N62 Hypertrophy of breast; M54.9 Dorsalgia, unspecified; F41.9 Anxiety disorder, unspecified

== ENCOUNTER → 2024-03-31 15:31 | Outpatient (BNVA) | payer BC, SELFPAY | PROVIDERS: PCP Nurse Practitioner Family; Visit Provider Internal Medicine ==

== ENCOUNTER 2024-06-13 14:52 | Outpatient (AMB) | payer BC, SELFPAY ==
--- NOTE | 2024-06-13 14:56 | MHC.OFFVIS ---
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 She is not having any director of recruiting concerns at all she has lost weight she was around 200 last year and she has been going to the gym and watching her portions and eating healthy and she feels so much better and she is feeling very very good.. She started her period today and it is kind of heavy her periods are very crampy and she is wondering if there is anything she can do that she is not really interested in any hormones though. She has tried ibuprofen up to 600 mg and she has also tried Pamprin and other options and nothing seems to help. She is not interested in any hormonal method at this time though. She is not interested in ever childbearing she would support her girlfriend of her girlfriend carried a . She has made an appointment with a breast surgeon in [facility] to get a breast reduction surgery she has large breasts and she struggles with a backache and tries very hard to maintain good posture but she has decided she wants breast reduction surgery. She is waiting on insurance approval and then we will be proceeding. She said she has already seen pictures of what the scars will look like. She is not on any other medications She started her period today and it is rather heavy and since she is not worried at all about any STIs and everything was negative last year decision made today to defer pelvic exam as not necessary She has not seen her primary care provider in about a year. 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 Sexual orientation: Lesbian/Freire/Homosexual Gender identity: Female Cognitive needs: No Hearing needs: No Vision needs: No Female Reproductive History Menstrual Age of Menarche: 11 Date of last menstrual period: 06/13/24 Total pregnancies: 0 Date of last pap smear: 06/15/23 Physical Exam Vital Signs: Last Vital Signs BP 112/70 06/13/24 15:28 BMI result Body Mass Index 31.5 Const General: healthy appearing, comfortable, no acute distress, well developed and alert Nutritional Appearance: average body habitus Orientation/consciousness: patient oriented x3 Limitations: no limitations HEENT Head: Yes normocephalic Neck Neck: Yes normal visual inspection Chest Chest palpation & inspection: normal inspection of the chest Breast/axilla inspection: normal inspection of the breasts and normal inspection of the axillae Breast/axilla palpation: normal palpation of the breasts and normal palpation of the axillae Resp Effort & Inspection: normal respiratory effort GI Inspection: Yes normal to inspection, No Abdominal wall edema and No distended Palpation (GI): Soft to palpation and nontender Neuro General: patient oriented x3 Results Reviewed Results Reviewed: Name: Dixie Oh Age/Sex: 23/F Attending: Joleen Young CNM : 2000 Submitted by: Joleen Young CNM Copies to: Christal Baxter MR #: [id number] Status: DEP REF Collected: 06/11/23 Location: .LAB Received: 06/15/23 Interpretation Satisfactory for evaluation. No endocervical cells seen. Moderate inflammation. Negative for intraepithelial lesion or malignancy. HPV mRNA E6/E7: NOT DETECTED This assay detects E6/E7 viral messenger RNA (mRNA) from 14 high-risk HPV types (16, 18, 31, 33, 35, 39, 45, 51, 52, 56, 58, 59, 66, 68) HPV testing performed by [facility], [place], [place]. See reference laboratory portion of the EMR for entire report. Clinical Information LMP:05/21/23 Previous PAP test: No previous pap Material Received ThinPrep-Cervical Copies To Joleen Young [address] [place] [address] Christal Baxter [address] [place] [address] Electronically Signed By: FLACO March (ASCP) 06/23/23 0932 The Pap Test is a screening procedure with the inherent possibility of both false negative and false positive results. Results should be interpreted in the context of historic and current clinical findings. Reliability of the Pap Test is enhanced by performing the test on a regular repetitive basis. Patient: Dixie Oh Age/Sex: 23/F MR#: [id number] Page 1 of 1 Assessment & Plan Assessment & Plan (1) Cervical cancer screening: Onset Date: ~06/11/23 Comment: First Pap done 06/11/2023= negative with negative HPV. Code(s): Z12.4 - Encounter for screening for malignant neoplasm of cervix Category: Medical (2) Large breasts: Code(s): N62 - Hypertrophy of breast Category: Medical (3) Dysmenorrhea, unspecified: Code(s): N94.6 - Dysmenorrhea, unspecified Category: Medical (4) Well woman exam (no gynecological exam): Code(s): Z00.00 - Encounter for general adult medical examination without abnormal findings Category: Medical Plan Congratulated on her hard work to achieve her healthier state and weight loss. Discussed her plans for breast reduction surgery and scarring she does not seem to form keloid scars so that is to her benefit. Discussed questions to ask about the surgery she has already looked at pictures about size Discussed that she may need primary care clearance so that would be an opportunity to meet up with whoever is her primary care provider now Pap smear was negative last year. She has no concerns at all about STIs and all testing was negative last year. If she and her girlfriend had a baby she would not be the carrier and so is out of the question as well and she knows this. Coding Level of Care Code Est Pt Prev Care 18-39y(05568) Diagnoses Cervical cancer screening Z12.4 Large breasts N62 Dysmenorrhea, unspecified N94.6 Well woman exam (no gynecological exam) Z00.00
[2024-06-13 15:28] VITALS: BP 112/70; BMI 31.5
== END 2024-06-13 16:15 | disposition home or self-care (01) ==
PROVIDERS: PCP Nurse Practitioner Family; Visit Provider Advanced Practice Midwife
DX: Z01.419 Encounter for gynecological examination (general) (routine) without abnormal findings (principal); N94.6 Dysmenorrhea, unspecified; N62 Hypertrophy of breast
CPT/HCPCS: 99395; 99459

== ENCOUNTER 2024-10-06 09:24 | Outpatient (AMB) | payer BC, SELFPAY ==
--- NOTE | 2024-10-06 09:32 | MHC.PC.OV ---
Vital Signs 10/06/24 09:33 10/06/24 09:33 Height 5 ft 2 in 5 ft 2 in Weight 170 lb 2 oz BMI 31.1 BP 134/82 Blood Pressure Location Lt brachial Lt brachial Position Sitting Sitting Pulse 82 Pulse Source Pulse Oximeter Pulse Oximeter Temp 97.3 F Temp Source Temporal Artery Scan Pulse Oximetry (%) 95 Oxygen Delivery Method Room Air Room Air Intake Visit Reasons: hoarseness x months Speaking Unit Assembler Required: No Accompanied by: Self / Same As Patient Allergies No Known Allergies Allergy (Verified 10/06/24 09:40) Medication List - Last Reconciled 10/06/24 by Aisha Ibarra PA-C No Known Home Meds Tobacco use date assessed: 10/06/24 Dental Screening Dental Screen Date: 10/06/24 HPI hoarseness x months HPI Details 24-year-old female with past medical history of anxiety and obesity last seen 03/[address] Vance coming in for acute problem. Presenting with hoarseness. The hoarseness began approximately four months ago without any clear inciting event. The patient reports cessation of marijuana use and denies tobacco use. The hoarseness varies in severity, with some days being worse than others, denies nausea, vomiting, fever, or painful swallowing. She experiences occasional cough related to allergies and postnasal drip. She reports a history of a palpable neck lump, which has since decreased in size. Physical examination revealed cobblestoning in the throat, consistent with allergies. A palpable lymph node was noted during the neck examination. 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 1. Little interest or pleasure in doing things: several days 2. Feeling down, depressed, or hopeless: several days 3. Trouble falling or staying asleep, or sleeping too much: several days 4. Feeling tired or having little energy: not at all 5. Poor appetite or overeating: more than half the days 6. Feeling bad about yourself - or that you are a failure or have let yourself or your family down: several days 7. Trouble concentrating on things, such as reading the newspaper or watching television: not at all 8. Moving or speaking so slowly that other people could have noticed. Or the opposite - being so fidgety or restless that you have been moving around a lot more than usual: not at all 9. Thoughts that you would be better off or of hurting yourself in some way: not at all Total score: 6 Source: Developed by Drs. Diza Lowe, Toyin Mart, Eduardo Grover and colleagues, with an educational elkin from [employer]. Thrive Questionnaire Date Thrive assessed: 10/06/24 I am a: Patient What is your living situation today?: I have a steady place to live Within the past 12 months, did the food you bought not last and you didn't have the money to get more?: Never true Within the past 12 months, did you worry whether your food would run out before you got money to buy more?: Never true Do you have trouble paying for medicines?: No Do you have trouble getting transportation to medical appointments?: No Do you have trouble paying your heating and electricity bill?: No Do you have trouble taking care of your child, family member or friend?: No Do you have trouble with day-to-day activities such as bathing, preparing meals, shopping, managing finances, etc.?: No Are you currently unemployed and looking for a job?: No Are you interested in more education?: Yes Please select the resources that you would like help with: Education Currently or been in a relationship where the following occur: No concerns reported THRIVE Score: 0 AUDIT C Alcohol Use Questionnaire (AUDIT-C) 1. How often do you have a drink containing alcohol?: Monthly or less 2. How many drinks containing alcohol do you have on a typical day when you are drinking?: 3 or 4 3. How often do you have six or more drinks on one occasion?: Never Total Score: 2 KASSI-7 AMB Questionnaire KASSI-7 Date KASSI - 7 assessed: 10/06/24 Feeling nervous, anxious, or on edge: 0 = Not at all Not being able to stop or control worryin = Not at all Worrying too much about different things: 0 = Not at all Trouble relaxin = Not at all Being so restless that it is hard to sit still: 0 = Not at all Becoming easily annoyed or irritable: 1 = Several days Feeling afraid as if something awful might happen: 0 = Not at all Total KASSI-7 score (0-4 normal; 5-9 mild; 10-14 moderate; 15-21 severe): 1 Source: Developed by Drs. Diaz Lowe, Toyin Mart, Eduardo Grover and colleagues, with an educational elkin from [employer]. Review of Systems Const Denies body aches, Denies chills, Denies fever(s), Denies headache(s) and Denies poor appetite Eyes Reports no additional complaints ENT Denies dysphagia, Denies headache(s) and Denies odynophagia Card Denies chest pain, Denies edema, Denies irregular heart rhythm, Denies lightheadedness and Denies dyspnea Resp Details: SOB with prolonged speaking Denies cough and Denies dyspnea GI Denies dysphagia, Denies diarrhea, Denies nausea, Denies odynophagia and Denies vomiting Reports no additional complaints Musc Reports no additional complaints and Denies abnormal gait Neuro Denies abnormal gait and Denies headache(s) Psych Reports no additional complaints Physical exam (Primary Care) Vital Signs: Last Vital Signs Temp 97.3 F 10/06/24 09:33 Pulse 82 10/06/24 09:33 BP 134/82 10/06/24 09:33 Pulse Ox 95 10/06/24 09:33 Oxygen Delivery Method Room Air 10/06/24 09:33 BMI result Body Mass Index 31.1 Tobacco/Smoking Status: Tobacco use Status Tobacco use date assessed 10/06/24 10/06/24 09:34 Patient Tobacco Use Status Never used Tobacco 10/06/24 09:34 e-Cigarette/Vaping Use Never Used 10/06/24 09:34 PHQ-9: PHQ-9 Score PHQ-9: Total score 6 10/06/24 09:34 Thrive Assessment: Date of Thrive Assessment Date Thrive assessed 10/06/24 10/06/24 09:34 Currently or been in a relationship where the following occur: No concerns reported Const General: cooperative, healthy appearing, comfortable and no acute distress Orientation/consciousness: patient oriented x3 HENMT Head: Yes normocephalic Ears: hearing grossly normal bilaterally General nose exam: Normal external nose present Eyes General: appearance normal, both eyes and all related structures Conjunctivae: conjunctivae normal Neck Neck: Yes full ROM and Yes no lymphadenopathy Resp Effort & Inspection: normal respiratory effort Auscultation: clear to auscultation bilaterally, no crackles, no rales, no rhonchi and no wheezes Cardio Rate: regular rate Rhythm: regular rhythm Skin General skin exam: no rashes or lesions noted Neuro General: patient oriented x3 Gait exam (Neuro): Normal gait present Extrem General: Yes normal to inspection, Yes full ROM and No edema Psych Affect: normal affect Attitude: cooperative Insight: Good insight present (Psych) Judgement: Good judgement present (Psych) Coding Level of Care Code Est Pt Level 4 (65424) Diagnoses Hoarseness R49.0 Neck mass R22.1 Assessment & Plan Assessment & Plan (1) Hoarseness: Code(s): R49.0 - Dysphonia Category: Medical Plan: Discussed with patient there may be several etiologies of hoarseness including but not limited to allergies, GERD, mass and vocal cord abnormality. I discussed this case with Dr. Hawkins recommended barium swallow for further evaluation and referral was placed to speech today for further evaluation. Given the cobblestoning plan to start on daily allergy medication and although patient is denying GERD symptoms plan to trial famotidine as well in the event she has silent reflux. If symptoms do not improve or we do not identify an etiology plan to refer to ear nose and throat. (2) Neck mass: Code(s): R22.1 - Localized swelling, mass and lump, neck Category: Medical Plan: Patient having small palpable nontender mass in the right aspect of the neck likely a palpable lymph node. However given patient's symptoms of horses plan to obtain neck ultrasound for further evaluation. Denies any dysphagia or odynophagia. Plan The plan includes initiating treatment with famotidine, which serves as both an allergy medication and a treatment for gastroesophageal reflux disease GERD). Additionally, the patient will start an allergy pill to address the cobblestoning observed in the throat. A barium swallow test and an ultrasound of the neck are planned to investigate the presence of any masses or compression causing the hoarseness. Follow-up appointments will be scheduled to monitor progress and adjust the treatment plan as necessary. This note was constructed using voice recognition software. While every effort has been made to ensure accuracy and cream separator operator, still areas may have been included sometimes these areas may affect the content or meeting of the given symptoms. Total time spent caring for the patient today was 20 minutes. This includes time spent before the visit reviewing the chart, time spent during the visit, and time spent after the visit and documentation. Patient was informed and verbally consented to the use of an ambient scribe for clinic note documentation during this visit. Orders: Orders US soft tiss head and/or neck Today R22.1 - Localized swelling, mass and lump, neck, R49.0 - Dysphonia FL barium swallow Today R49.0 - Dysphonia Referrals Speech and Hearing Referral R49.0 - Dysphonia Medications: New cetirizine (All Day Allergy (cetirizine)) 10 mg PO DAILY 90 caps 0RF allergy symptoms famotidine (Acid Pattern Scratcher (famotidine)) 10 mg PO BEDTIME 90 tabs 0RF
[2024-10-06 09:33] VITALS: BP 134/82; PULSE 82; TEMP 36.3; O2SAT 95; BMI 31.1
--- OUTSIDE RECORDS SUMMARY | 2024-10-06 09:42 | XMS_ITS | Encounter Summary ---
Author Organization [facility] Address [address] [place] [address] Phone Care Team Providers Care Dairy Frozen Manager Name Role Phone Aubrie Levi MD Primary Care Provider Encounter Details Date Type Department Care Team (Late st Contact Info) Description 12/24/2012 Documentation [facility] [place] Family Medicine [address] [place] [address] Family Medicine, Physician [address] [place], [place] [address] Social History Tobacco Use Types Packs/Day Years Used Date Smoking Tobacco: Never Assessed Comments Unknown Sex and Gender Information Value Date Recorded Sex Assigned at Female 06/10/2021 1:31 PM EST Legal Sex Female 5:11 PM EDT Gender Identity Female 06/10/2021 1:31 PM EST Sexual Orientation Lesbian or Freire 06/10/2021 1: 31 PM EST documented as of this encounter Plan of Treatment Not on file documented as of this encounter Visit Diagnoses Not on filedocumented in this encounter Care Teams Dairy Frozen Manager Relationship Specialty Start Date End Date Aubrie Levi MD [address] [place] [address] [place] [address] PCP - General 11/14/16 08/26/22 documented as of this encounter
== END 2024-10-06 10:01 | disposition home or self-care (01) ==
PROVIDERS: PCP Internal Medicine
DX: R49.0 Dysphonia (principal); R22.1 Localized swelling, mass and lump, neck

== ENCOUNTER 2024-10-11 15:46 | Outpatient (REF) | payer BC, SELFPAY ==
--- NOTE | ~2024-10-11 | XR_ITS ---
EXAMINATION: XR CHEST CLINICAL INFORMATION: R49.0 - Dysphonia COMPARISON: None available. TECHNIQUE: PA view of the chest was obtained. FINDINGS: The cardiac, hilar, and mediastinal contours are normal. The lungs are clear bilaterally. No pneumothorax or effusion. No focal osseous or soft tissue abnormality. XR/XR chest 1V IMPRESSION: No active disease. Normal chest. Electronically signed by: Enrique Wheat MD 10/11/2024 04:14 PM EDT
--- OUTSIDE RECORDS SUMMARY | 2024-10-11 16:03 | XMS_ITS | Encounter Summary ---
Author Organization [facility] Address [address] [place] [phone] Phone Care Team Providers Care Class A Lineman Name Role Phone Aubrie Levi MD Primary Care Provider Encounter Details Date Type Department Care Team (Late st Contact Info) Description 12/24/2012 Documentation [facility] [place] Family Medicine [address] [place] [address] Family Medicine, Physician [address] [place], [place] [phone] Social History Tobacco Use Types Packs/Day Years [...] on filedocumented in this encounter Care Teams Class A Lineman Relationship Specialty Start Date End Date Aubrie Levi MD [address] [place] [address] [place] [address] PCP - General 11/14/16 08/26/22 documented as of this encounter
== END 2024-10-11 15:47 | disposition home or self-care (01) ==
LOC: HO.XRAY 15:46
DX: R49.0 Dysphonia (principal)
CPT/HCPCS: 71045

== ENCOUNTER → 2024-10-11 15:52 | Outpatient (BNV) | payer BC, SELFPAY | PROVIDERS: Visit Provider Radiology Diagnostic Radiology | DX: R49.0 Dysphonia (principal) | CPT/HCPCS: 71045 ==

== ENCOUNTER 2024-11-14 07:47 | Outpatient (REF) | payer BC, SELFPAY ==
--- NOTE | ~2024-11-14 | US_ITS ---
EXAMINATION: US HEAD NECK SOFT TISSUE HISTORY: R22.1 - Localized swelling, mass and lump, neck COMPARISON: There are no prior studies available for comparison. FINDINGS: Sonographic examination of a palpable abnormality in the right submandibular region was performed. There is an ovoid hypoechoic mass measuring 2.2 x 1.1 x 0.7 cm which likely represents a lymph node. No definite fatty hilum is seen. US/US soft tiss head and/or neck IMPRESSION: Nonspecific hypoechoic mass 2.2 x 1.1 x 0.7 cm in the right submandibular region which likely represents a lymph node. Electronically signed by: Diaz Siddiqui MD 11/16/2024 09:05 AM EDT RP
--- NOTE | ~2024-11-14 | FL_ITS ---
EXAMINATION: XR BARIUM SWALLOW CLINICAL INFORMATION: Dysphonia COMPARISON: None available. TECHNIQUE: Routine barium swallow with thick barium and barium coated saltine crackers was performed in upright view. Thin barium was administered in prone lying position. FINDINGS: Following oral administration of thick barium there is normal propagation bolus from the oral cavity through the pharynx, esophagus into stomach without obstruction, narrowing or stricture. Magnified views of the pharynx reveals widely distended valleculae and piriform sinuses. No intraluminal filling defect seen. There is normal elevation of larynx and epiglottic closure. On oral administration of barium coated saltine crackers and thin barium there is normal oral mastication and propagation of bolus from the oral cavity through the pharynx into esophagus. Following oral administration of thin barium in prone lying position there is normal distention of esophagus without any intrinsic defect or extrinsic compression. The GE junction is widely patent. No reflux is no gastroesophageal reflux or hiatal hernia. FLUOROSCOPY TIME: 1.37 minutes. DOSE AREA PRODUCT: 712.2 uGy-m2 (microgray-meter squared) FL/FL barium swallow IMPRESSION: Normal barium swallow exam.. Electronically signed by: Cristian Griffin MD 11/14/2024 01:49 PM EDT
--- OUTSIDE RECORDS SUMMARY | 2024-11-14 07:49 | XMS_ITS | Encounter Summary ---
Author Organization [facility] Address [address] [place] [address] Phone Care Team Providers Care Border Measurer Name Role Phone Aubrie Levi MD Primary Care Provider Encounter Details Date Type Department Care Team (Late st Contact Info) Description 12/24/2012 [place] [facility] [place] [address] [place] [address] Family Medicine, Physician [address] [place], [place] [phone] Social History Tobacco Use Types Packs/Day Years [...] on filedocumented in this encounter Care Teams Border Measurer Relationship Specialty Start Date End Date Aubrie Levi MD [address] [place] [address] [place] [address] PCP - General 11/14/16 08/26/22 documented as of this encounter
== END 2024-11-14 07:48 | disposition home or self-care (01) ==
LOC: HO.XRAY 07:47
DX: R49.0 Dysphonia (principal); R22.1 Localized swelling, mass and lump, neck
CPT/HCPCS: 74220; 76536

== ENCOUNTER → 2024-11-14 07:47 | Outpatient (BNV) | payer BC, SELFPAY | PROVIDERS: Visit Provider Radiology Diagnostic Radiology | DX: R49.0 Dysphonia (principal) | CPT/HCPCS: 74220 ==

== ENCOUNTER 2024-12-07 15:22 | Outpatient (AMB) | payer BC, SELFPAY ==
--- NOTE | 2024-12-07 15:26 | MHC.PC.OV ---
Vital Signs 12/07/24 15:28 Height 5 ft 2 in Weight 171 lb 2 oz BMI 31.3 BP 120/70 Blood Pressure Location Lt brachial Position Sitting Pulse 73 Pulse Oximetry (%) 98 Oxygen Delivery Method Room Air Intake Visit Reasons: f/u hoarseness Cosmetic Chemist Required: No Accompanied by: self Allergies No Known Allergies Allergy (Verified 12/07/24 15:43) Medication List - Last Reconciled 12/07/24 by Aisha Ibarra PA-C No Known Home Meds Tobacco use date assessed: 12/07/24 Dental Screening Dental Screen Date: 10/06/24 Did you have a dental visit in the last 12 months?: Yes Did you have a dental problem in the last 6 months where you did not have access to dental care?: No Was dental information given to patient?: Patient has dentist HPI f/u hoarseness HPI Details 24-year-old female with past medical history of anxiety and obesity last seen 10/2024 coming in for follow up. In review of the notes, patient completed ultrasound of the neck which revealed a nonspecific hypoechoic mass likely representing a lymph node. She also completed barium swallow which was normal. Presenting with hoarseness and vocal cord dysfunction. Hoarseness has persisted for six to seven months, worsening after prolonged speaking. Barium swallow test and chest X-ray were negative for significant findings. Referred to an ear, nose, and throat specialist and a speech pathologist for further evaluation. Previous interventions with famotidine and allergy medications did not alleviate symptoms. 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 Sexual orientation: Lesbian/Freire/Homosexual Gender identity: Female Cognitive needs: No Hearing needs: No Vision needs: No Female Reproductive History Menstrual Age of Menarche: 11 Questionnaire Thrive Questionnaire Date Thrive assessed: 10/06/24 I am a: Patient What is your living situation today?: I have a steady place to live Within the past 12 months, did the food you bought not last and you didn't have the money to get more?: Never true Within the past 12 months, did you worry whether your food would run out before you got money to buy more?: Never true Do you have trouble paying for medicines?: No Do you have trouble getting transportation to medical appointments?: No Do you have trouble paying your heating and electricity bill?: No Do you have trouble taking care of your child, family member or friend?: No Do you have trouble with day-to-day activities such as bathing, preparing meals, shopping, managing finances, etc.?: No Are you currently unemployed and looking for a job?: No Are you interested in more education?: Yes Please select the resources that you would like help with: Education Currently or been in a relationship where the following occur: No concerns reported THRIVE Score: 0 KASSI-7 AMB Questionnaire KASSI-7 Date KASSI - 7 assessed: 10/06/24 Source: Developed by Drs. Diaz Lowe, Toyin Mart, Eduardo Grover and colleagues, with an educational elkin from [employer]. Review of Systems Const Denies body aches, Denies chills and Denies fever(s) Eyes Reports no additional complaints ENT Reports change in voice, Denies dysphagia, Denies neck mass, Denies neck pain, Denies odynophagia and Denies sore throat Card Denies chest pain, Denies syncope, Denies lightheadedness and Denies dyspnea Resp Details: Dyspnea with speaking for long periods Denies dyspnea GI Denies dysphagia and Denies odynophagia Musc Denies neck pain Neuro Denies syncope Physical exam (Primary Care) Vital Signs: Last Vital Signs Pulse 73 12/07/24 15:28 BP 120/70 12/07/24 15:28 Pulse Ox 98 12/07/24 15:28 Oxygen Delivery Method Room Air 12/07/24 15:28 BMI result Body Mass Index 31.3 Tobacco/Smoking Status: Tobacco use Status Tobacco use date assessed 12/07/24 12/07/24 15:31 Patient Tobacco Use Status Never used Tobacco 12/07/24 15:31 e-Cigarette/Vaping Use Never Used 12/07/24 15:31 Thrive Assessment: Date of Thrive Assessment Date Thrive assessed 10/06/24 12/07/24 15:31 Currently or been in a relationship where the following occur: No concerns reported Const General: cooperative, healthy appearing, comfortable and no acute distress Orientation/consciousness: patient oriented x3 HENMT Head: Yes normocephalic Ears: hearing grossly normal bilaterally General nose exam: Normal external nose present Eyes General: appearance normal, both eyes and all related structures Conjunctivae: conjunctivae normal Neck Neck: Yes full ROM and Yes no lymphadenopathy Resp Effort & Inspection: normal respiratory effort Auscultation: clear to auscultation bilaterally, no crackles, no rales, no rhonchi and no wheezes Cardio Rate: regular rate Rhythm: regular rhythm Skin General skin exam: no rashes or lesions noted Neuro General: patient oriented x3 Gait exam (Neuro): Normal gait present Extrem General: Yes normal to inspection, Yes full ROM and No edema Psych Affect: normal affect Attitude: cooperative Insight: Good insight present (Psych) Judgement: Good judgement present (Psych) Coding Level of Care Code Est Pt Level 3 (22198) Diagnoses Hoarseness R49.0 Neck mass R22.1 Assessment & Plan Assessment & Plan (1) Hoarseness: Code(s): R49.0 - Dysphonia Category: Medical Plan: The patient has been referred to an ear, nose, and throat specialist and a speech pathologist for further evaluation of vocal cord dysfunction. Previous interventions with famotidine and allergy medications did not alleviate symptoms, suggesting a non-gastroesophageal etiology. The patient is advised to contact the speech pathology department for an earlier appointment if possible. I did also reach out to speech and [place] [facility] [place]. He will work on getting her scheduled sooner and updated the ENT referral to urgent. (2) Neck mass: Code(s): R22.1 - Localized swelling, mass and lump, neck Category: Medical Plan: Ultrasound revealing nonspecific hypoechoic mass likely a lymph node. Plan I discussed with the patient the findings of the barium swallow and chest X-ray, both of which were negative for significant issues. We talked about the referral to the ear, nose, and throat specialist and the speech pathologist for further evaluation of her vocal cord dysfunction. I advised her to contact the speech pathology department for an earlier appointment if possible. We also reviewed that previous treatments with famotidine and allergy medications did not alleviate her symptoms, indicating a non-gastroesophageal cause. This note was constructed using voice recognition software. While every effort has been made to ensure accuracy and assembling motor builder, still areas may have been included sometimes these areas may affect the content or meeting of the given symptoms. Total time spent caring for the patient today was 20 minutes. This includes time spent before the visit reviewing the chart, time spent during the visit, and time spent after the visit and documentation. Patient was informed and verbally consented to the use of an ambient scribe for clinic note documentation during this visit. Orders: Referrals Ear/Nose/Throat Referral R49.0 - Dysphonia
[2024-12-07 15:28] VITALS: BP 120/70; PULSE 73; O2SAT 98; BMI 31.3
--- OUTSIDE RECORDS SUMMARY | 2024-12-07 17:26 | XMS_ITS | Encounter Summary ---
Author Organization [facility] Address [address] [place] [address] Phone Care Team Providers Care Fruit Farmworker Name Role Phone Aubrie Levi MD Primary Care Provider Encounter Details Date Type Department Care Team (Late st Contact Info) Description 04/15/2016 Documentation [facility] [place] Family Medicine [address] [place] [address] Family Medicine, Physician [address] [place], [place] [phone] Social History Tobacco Use Types Packs/Day Years [...] on filedocumented in this encounter Care Teams Fruit Farmworker Relationship Specialty Start Date End Date Aubrie Levi MD [address] [place] [address] [place] [address] PCP - General 11/14/16 08/26/22 documented as of this encounter
--- OUTSIDE RECORDS SUMMARY | 2024-12-07 17:26 | XMS_ITS | Encounter Summary ---
Author Organization [facility] Address [address] [place] [address] Phone Care Team Providers Care Childhood Development Teacher Name Role Phone Aubrie Levi MD Primary Care Provider Encounter Details Date Type Department Care Team (Late st Contact Info) Description 06/11/2016 Documentation [facility] Family Medicine [address] [place] [address] Family Medicine, Physician [address] [place], [place] [address] Social History Tobacco Use Types Packs/Day Years [...] on filedocumented in this encounter Care Teams Childhood Development Teacher Relationship Specialty Start Date End Date Aubrie Levi MD [address] [place], [place] [address] [address] PCP - General 11/14/16 08/26/22 documented as of this encounter
--- OUTSIDE RECORDS SUMMARY | 2024-12-07 17:26 | XMS_ITS | Encounter Summary ---
Author Organization [facility] Address [address] [place] [address] Phone Care Team Providers Care Clay Artisan Name Role Phone Aubrie Levi MD Primary Care Provider Encounter Details Date Type Department Care Team (Late st Contact Info) Description 08/07/2009 Documentation [facility] [place] [address] [place] [address] Family Medicine, Physician [address] [place], [place] [phone] Social History Tobacco Use Types Packs/Day Years [...] on filedocumented in this encounter Care Teams Clay Artisan Relationship Specialty Start Date End Date Aubrie Levi MD [address] [place] [address] [place] [address] PCP - General 11/14/16 08/26/22 documented as of this encounter
--- OUTSIDE RECORDS SUMMARY | 2024-12-07 17:26 | XMS_ITS | Encounter Summary ---
Author Organization [facility] Address [address] [place] [address] Phone Care Team Providers Care Utility Gelatin Maker Name Role Phone Aubrie Levi MD Primary Care Provider [phone] Encounter Details Date Type Department Care Team (Late st Contact Info) Description 04/20/2013 Documentation [facility] [place] Family Medicine [address] [place] [address] Family Medicine, Physician [address] [place], [place] [address] Social History Tobacco Use Types Packs/Day Years [...] on filedocumented in this encounter Care Teams Utility Gelatin Maker Relationship Specialty Start Date End Date Aubrie Levi MD [address] [place] [address] [place] [address] PCP - General 11/14/16 08/26/22 documented as of this encounter
--- OUTSIDE RECORDS SUMMARY | 2024-12-07 17:26 | XMS_ITS | Encounter Summary ---
Author Organization [facility] Address [address] [place] [address] Phone Care Team Providers Care Finish Machine Tender Name Role Phone Aubrie Levi MD Primary Care Provider Encounter Details Date Type Department Care Team (Late st Contact Info) Description 06/14/2010 Documentation [facility] [place] Family Medicine [address] [place] [address] Family Medicine, Physician [address] [place], [place] 7[address] Social History Tobacco Use Types Packs/Day Years [...] on filedocumented in this encounter Care Teams Finish Machine Tender Relationship Specialty Start Date End Date Aubrie Levi MD [address] [place] [address] [place] [address] PCP - General 11/14/16 08/26/22 documented as of this encounter
--- OUTSIDE RECORDS SUMMARY | 2024-12-07 17:26 | XMS_ITS | Encounter Summary ---
Author Organization [facility] Address [address] [place] [address] Phone Care Team Providers Care Cash On Delivery Clerk Name Role Phone Aubrie Levi MD Primary Care Provider Encounter Details Date Type Department Care Team (Late st Contact Info) Description 03/12/2010 Documentation [facility] [place] [address] [place] [address] Family Medicine, Physician [address] [place], [place] [address]65[address] Social History Tobacco Use Types Packs/Day Years [...] on filedocumented in this encounter Care Teams Cash On Delivery Clerk Relationship Specialty Start Date End Date Aubrie Levi MD [address] [place] [address] [place] [address] PCP - General 11/14/16 08/26/22 documented as of this encounter
--- OUTSIDE RECORDS SUMMARY | 2024-12-07 17:26 | XMS_ITS | Encounter Summary ---
Author Organization [facility] Address [address] [place], [place] [phone] Phone Care Team Providers Care Professor Of Spanish Name Role Phone Aubrie Levi MD Primary Care Provider [phone] Encounter Details Date Type Department Care Team (Late st Contact Info) Description 11/20/2016 Conversion Encounter [facility] [place] [address] [place] [address] Social History Tobacco Use Types Packs/Day Years Used Date Smoking Tobacco: Never Comments:Never smoker Comments Unknown Sex and Gender Information Value [...] on filedocumented in this encounter Care Teams Professor Of Spanish Relationship Specialty Start Date End Date Aubrie Levi MD [address] [place] [address] PCP - General 11/14/16 08/26/22 documented as of this encounter
--- OUTSIDE RECORDS SUMMARY | 2024-12-07 17:26 | XMS_ITS | Encounter Summary ---
Author Organization [facility] Address [address] [place] [address] Phone Care Team Providers Care Noteman Name Role Phone Aubrie Levi MD Primary Care Provider [phone] Encounter Details Date Type Department Care Team (Late st Contact Info) Description 12/24/2012 Documentation [facility] [place] Family Medicine [address] [place] [address] Family Medicine, Physician [address] [place], [place] [address] Social History Tobacco Use Types Packs/Day Years [...] on filedocumented in this encounter Care Teams Noteman Relationship Specialty Start Date End Date Aubrie Levi MD [address] [place] [address] [place] [address] PCP - General 11/14/16 08/26/22 documented as of this encounter
--- OUTSIDE RECORDS SUMMARY | 2024-12-07 17:26 | XMS_ITS | Encounter Summary ---
Author Organization [facility] Address [address] [place] [address] Phone Care Team Providers Care Paint Grinder Name Role Phone Aubrie Levi MD Primary Care Provider [phone] Encounter Details Date Type Department Care Team (Late st Contact Info) Description 12/24/2012 Documentation [facility] [place] Family Medicine [address] [place] [address] Family Medicine, Physician [address] [place], [place] [address] Social History Tobacco Use Types Packs/Day Years [...] on filedocumented in this encounter Care Teams Paint Grinder Relationship Specialty Start Date End Date Aubrie Levi MD [address] [place] [address] [place] [address] PCP - General 11/14/16 08/26/22 documented as of this encounter
--- OUTSIDE RECORDS SUMMARY | 2024-12-07 17:26 | XMS_ITS | Clinical Summary ---
Author Organization [facility] Address [address] [place] [address] Phone Care Team Providers Care Floral Merchandiser Name Role Phone Unavailable Primary Care Provider Unavailabl e Allergies No known active allergies Medications ibuprofen 200 MG tablet Take 400 mg by mouth every 6 (six) hours as needed for mild pain. Active ibuprofen 600 MG tablet Take 600 mg by mouth every 6 (six) hours as needed. for pain 07/26/2020 Active Active Problems Problem Noted Date Diagnosed Date Large breasts 06/10/2021 Immunizations Immunization Administration Dates Next Due COVID-19 Pfizer, isrrael-sucros e, 12+ years 07/01/2021,06/10/2021 DTaP 5 12/31/2005, 2,03/31/2001,01/27,2000 H1N1 05/16/2009,03/22/2009 HPV, Quadrivalent 02/07/2013,10/04/2012,08/03/19 13 Hep A, ped/adol 02/02/2015,10/26/2013 Hep B, ped/adol 03/31/2001,01/27/2001,2000 Hib (PRP-T) 08/31/2001, 1,01/27/2001,08/04 IPV 12/31/2005, 2,01/27/2001,07/21 Influenza Split 12/12/2010,03/07/2010 Influenza, injectable, quadrivalent 02/02/2015 Influenza, injectable, quadr ivalent, preservative free 06/10/2021,12/13/2015 Influenza, injectable, trivalent 04/17/2009,03/06,03/23/2007 MMR 12/26/2004,06/02/2001 Meningococcal B Trumenba 06/10/2021,09/21/2019 Meningococcal Conj (Menactra) MCV4P 09/23/2017,0 08/02/2012 Pneumococcal Conjugate 03/31/2001,01/27/2001,04/2000 Tdap 08/02/2012 Varicella 03/24/2008,08/31/2001 Family History Medical History Relation Name Comments Eczema Brother Asthma Half-Brother Anxiety disorder Maternal Grandmother Heart disease (Premature) Maternal Grandmother Hypertension Maternal Grandmother Hypertension Paternal Grandfather Relation Name Status Comments Brother Alive Father Alive Half-Brother Alive Maternal Grandmother Mother Alive Other Family history of Elevated cholesterol, Family history of Asthma, Family history of Seizure disorder, Family history of Obesity, Family history of Sudden /[place] under age 55 Paternal Grandfather Paternal Grandmother Alive Sister Alive Social History Tobacco Use Types Packs/Day Years Used Date Smoking Tobacco: Never Smokeless Tobacco: Never Tobacco Cessation:Counseling Given: Yes Comments:Never smoker Alcohol Use Standard Drinks/Week Comments No 0 (1 standard drink = 0.6 oz pur e alcohol) Hunger/Food Answer Date Recorded In the last 12 months, did y ou or your family ever eat less than you felt you should because there wasn't enough money for food? No 06/10/2021 Stable Housing Answer Date Recorded Are you worried that in the next 2 months you may not have stable housing? No 06/10/2021 Transportation Concerns Answer Date Rec orded In the last 12 months, have you or your family ever had to go without healthcare because you didn't have a way to get there? No 06/10/2021 Hazards in Home Answer Date Recorded Think about the place you li ve. Do you have problems with any of the following? Pests (mice or roaches), mold, no/not working smoke detectors, water leaks, no window guards. No 2021 Financing Utilities Answer Date Recorde d In the last 12 months, has t he electric, gas, oil, or water company threatened to shut off your services in your home? No 06/10/2021 Safety at Home Answer Date Recorded Are you or your family worried about feeling saf e in your home? No 06/10/2021 Outside Support Answer Date Recorded Do you feel that you need mo re support from other people or programs to help you care for yourself or your family? No 06/10/2021 Understanding Health Concerns Answer Da te Recorded Do you need help understandi ng your or your child's healthcare needs (diagnosis, medications, plan, etc.)? No 06/10/2021 Financing Health Concerns Answer Date R ecorded In the last 12 months, was t here a time when your child needed to see a doctor or get medications or supplies but could not because of cost? No 06/10/2021 Missing School or Work Answer Date Aldair rded Did you or your child miss s chool or work because of a health problem that could have been avoided? No 06/10/2021 Comments No Sex and Gender Information Value Date Recorded Sex Assigned at Female 06/10/2021 1:31 PM EST Legal Sex Female 5:11 PM EDT Gender Identity Female 06/10/2021 1:31 PM EST Sexual Orientation Lesbian or Freire 06/10/2021 1: 31 PM EST Last Filed Vital Signs Vital Sign Reading Time Taken Comments Blood Pressure 131/82 06/10/2021 10:44 AM EST Pulse 61 06/10/2021 10:44 AM EST Temperature 37.2 C (98.9 F) 09/21/2019 2:45 PM EDT Respiratory Rate - - Oxygen Saturation 100% 10/23/2017 8:06 AM EDT Inhaled Oxygen Concentration - - Weight 85.4 kg (188 lb 3.2 oz) 06/10/2021 10:44 AM EST Height 160 cm (5' 3 ) 06/10/2021 10:44 AM EST Body Mass Index 33.34 06/10/2021 10:44 AM EST Plan of Treatment Health Maintenance Due Date Last Done Comments DTaP,Tdap,and Td Vaccines (7 - Td or Tdap) 08/02/2022 08/02/2012, 12/31/2005, 01/28/2002, Additional history exists COVID-19 Vaccine (3 - season) 2023 07/01/2021, 06/10/2021 Influenza Vaccines (#1) 2024 06/11/19, 12/13/2015, 02/02/2015, Additional history exists Hepatitis B Vaccines Completed 03/31/2001, 01/27/2001, 2000 Pneumococcal Vaccine Aged Out 03/31/2001, 01/27/2001, 2000 No longer eligible based on patient's age to complete this topic HIB Vaccines Completed 08/31/2001, 03/07, 01/27/2001, Additional history exists MMR Vaccines Completed 12/26/2004, 06/02/2001 IPV Vaccines Completed 12/31/2005, 05/08, 01/27/2001, Additional history exists Varicella Vaccines Completed 03/24/2008, 08/31/2001 HPV Vaccines Completed 02/07/2013, 0704/2012, 08/02/2012 Hepatitis A Vaccines Completed 02/02/2015, 10/27/19 14 Meningococcal Vaccine Completed 09/23/2017, 013 Men B Vaccine Completed 06/10/2021, 09/21/2019 Procedures * Due to [facility] law, this organization might not be sharing sensitive test results. Procedure Name Priority Date/Time Associated Diagnosis Comments CHLAMYDIA AND GONORRHEA, AMPLIFIED Routine 06/10/2021 10:48 AM EST Screening for chlamydial disease from Last 3 Months or Most Recently Relevant to Health Maintenance Results * Due to [place] [employer] law, this organization might not be sharing sensitive test results. * Chlamydia and Gonorrhoea, Amplified (Urine) (06/10/2021 10:48 AM EST) Chlamydia Trachomatis, DNA Probe NEGATIVE (NEG) [facility] Comment: No Chlamydia Trachomatis RNA detected in this patient's sample (REFERENCE RANGE/NORMAL VALUE: NOT DETECTED) Note: This test uses electrical technician- mediated amplification method to detect rRNA from C. Trachomatis URINE GC AMP PROBE NEGATIVE (NEG) [facility] Comment: No Neisseria Gonorrhoeae RNA detected in this patient's sample (REFERENCE RANGE/NORMAL VALUE: NOT DETECTED) NOTE: This test uses electrical technician-mediated amplification method to detect rRNA from N.Gonorrhoeae. A negative result does not preclude infection. In the case of a negative urine result, testing of an endocervical(female) or urethral (male) specimen is recommended if there is high clinical suspicion of infection. Due to very high sensitivity of Nucleic Acid Amplification Test, false positive results may occur. Therefore, specimen handling is extremely important. In patients in whom the disease is unlikely, additional sample for testing should be considered after an initial positive result. The performance characteristics of this test have not been evaluated in children. The Aptima Combo2 assay is not intended for the evaluation of suspected sexual abuse or for other medico-legal indications. The ordering provider should assess if the patient had consensual sex without risk of sexual abuse. Consult the [facility] if needed. Contact phone number . Therapeutic failure or success cannot be determined with the Aptima Combo2 assay since nucleic acid may persist following appropriate antimicrobial therapy. The Centers for Disease Control and Prevention (CDC) recommends confirmatory retesting using culture or a different nucleic acid amplification test when positive results occur, if indicated. Testing performed or reported by [facility], a Service of [facility], [address] [place] [address] MD, Chief Concierge [facility]# [id number] Urine (Urine, Random (not clean void)) 06/10/2021 10:48 AM EST 06/10/2021 6:41 PM EST us Aubrie Levi MD LAB MICROBIOLOGY - GENERAL ORDERABLES Final Result [facility] from Last 3 Months or Most Recently Relevant to Health Maintenance Insurance [facility]
--- OUTSIDE RECORDS SUMMARY | 2024-12-07 17:26 | XMS_ITS | Encounter Summary ---
Author Organization [facility] Address [address] [place] [address] Phone Care Team Providers Care Laborer Driver Name Role Phone Aubrie Levi MD Primary Care Provider [phone] Encounter Details Date Type Department Care Team (Late st Contact Info) Description 08/20/2015 Documentation [facility] [place] Family Medicine [address] [place] [address] Family Medicine, Physician [address] [place], [place] [address] Social History Tobacco Use Types Packs/Day Years [...] on filedocumented in this encounter Care Teams Laborer Driver Relationship Specialty Start Date End Date Aubrie Levi MD [address] [place] [address] [place] [address] PCP - General 11/14/16 08/26/22 documented as of this encounter
== END 2024-12-07 16:11 | disposition home or self-care (01) ==
LOC: HO.HMCH 15:22
PROVIDERS: PCP Internal Medicine
DX: R49.0 Dysphonia (principal); R22.1 Localized swelling, mass and lump, neck

== ENCOUNTER 2025-01-27 14:52 | Outpatient (AMB) | payer BC, SELFPAY ==
--- NOTE | 2025-01-27 14:57 | A.OFFPC_ITS ---
Vital Signs 01/27/25 14:59 Height 5 ft 2 in Weight 174 lb 2 oz BMI 31.8 BP 102/66 Blood Pressure Location Lt brachial Position Sitting Pulse 86 Pulse Source Pulse Oximeter Temp 97.1 F Temp Source Temporal Artery Scan Pulse Oximetry (%) 98 Oxygen Delivery Method Room Air Intake Visit Reasons: stye to right eye Intake Note: Patient complains of Stye on right eye. Thermostatic Controls Supervisor Required: No Nut And Bolt Assembler: Not Required per policy Accompanied by: Self / Same As Patient Allergies No Known Allergies Allergy (Verified 01/27/25 14:58) Medication List - Last Reconciled 01/27/25 by Ashlee Aj MD No Known Home Meds Tobacco use date assessed: 01/27/25 Dental Screening Dental Screen Date: 10/06/24 HPI HPI Comments History of Present Illness Details The patient is a 24-year-old female presenting with persistent eye swelling initially diagnosed as a stye. The swelling has been present for four days, and despite using warm and cold compresses and sgfw-uwp-xpyasqe medication (lubricating medication), there has been no improvement. The patient reports that the swelling is now painful when she forces her eye open, although it was n ot painful initially. 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 She suspects it might be cellulitis due to the severity and lack of a typical stye point. Additionally, the patient reports nasal congestion but denies using any nasal sprays or requiring treatment for it. 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 Sexual orientation: Lesbian/Freire/Homosexual Gender identity: Female Cognitive needs: No Hearing needs: No Vision needs: No Female Reproductive History Menstrual Age of Menarche: 11 Questionnaire Thrive Questionnaire Date Thrive assessed: 10/06/24 I am a: Patient What is your living situation today?: I have a steady place to live Within the past 12 months, did the food you bought not last and you didn't have the money to get more?: Never true Within the past 12 months, did you worry whether your food would run out before you got money to buy more?: Never true Do you have trouble paying for medicines?: No Do you have trouble getting transportation to medical appointments?: No Do you have trouble paying your heating and electricity bill?: No Do you have trouble taking care of your child, family member or friend?: No Do you have trouble with day-to-day activities such as bathing, preparing meals, shopping, managing finances, etc.?: No Are you currently unemployed and looking for a job?: No Are you interested in more education?: Yes Please select the resources that you would like help with: Education Currently or been in a relationship where the following occur: No concerns reported THRIVE Score: 0 KASSI-7 AMB Questionnaire KASSI-7 Date KASSI - 7 assessed: 10/06/24 Source: Developed by Drs. Diaz Lowe, Toyin Mart, Eduardo Grover and colleagues, with an educational elkin from [employer]. Review of Systems Const Details: Pertinent findings are in BOLD GENERAL APPEARANCE NAD, activity normal for age, well developed/ well nourished, no cyanosis, pallor, or diaphoresis. EYES right upper eye lid redness. Vision intact. EARS/NOSE/THROAT Mucous membranes moist, nares normal, lips/teeth normal uvula midline without oral pharyngeal erythema, exudate or swelling TMs normal bilaterally. No lymphangitis/lymphedema. HEAD/NECK normocephalic atraumatic, no facial trauma, neck is supple. RESPIRATORY respiratory effort normal, speaks in full sentences, no tripod position, no accessory muscle use. Lungs clear to auscultation without rhonchi, wheezes, rales CARDIAC Regular rate and rhythm, no edema. ABDOMINAL Soft, ND/NT. No evidence of fluid wave. No pulsatile masses on exam, rebound tenderness, Huertas sign or pain over Mcburney's point. MUSCLES/EXTREMITIES No abnormal range of motion, no swelling. SKIN Warm, pink and dry. No rashes, dermatoses, petechiae or lesions. NEUROLOGICAL Speech is clear and appropriate. Normal level of consciousness. Gait and coordination are normal. 5/5 strength in all extremities. PSYCH Normal mood and affect. Judgement/competence is appropriate Physical exam (Primary Care) Vital Signs: Last Vital Signs Temp 97.1 F 01/27/25 14:59 Pulse 86 01/27/25 14:59 BP 102/66 01/27/25 14:59 Pulse Ox 98 01/27/25 14:59 Oxygen Delivery Method Room Air 01/27/25 14:59 BMI result Body Mass Index 31.8 Tobacco/Smoking Status: Tobacco use Status Tobacco use date assessed 01/27/25 01/27/25 15:04 Patient Tobacco Use Status Never used Tobacco 01/27/25 15:04 e-Cigarette/Vaping Use Never Used 01/27/25 15:04 Thrive Assessment: Date of Thrive Assessment Date Thrive assessed 10/06/24 01/27/25 15:04 Currently or been in a relationship where the following occur: No concerns reported Coding Level of Care Code Est Pt Level 3 (27148) Diagnoses Hordeolum externum of right upper eyelid H00.011 Hordeolum type: externum Laterality: right Eyelid: upper Time Spent (min) 20 Assessment & Plan Assessment & Plan (1) Hordeolum eyelid: Code(s): H00.019 - Hordeolum externum unspecified eye, unspecified eyelid Category: Medical Qualifiers: Hordeolum type: externum Laterality: right Eyelid: upper Qualified Code(s): H00.011 - Hordeolum externum right upper eyelid Plan: Failure of improvement after OTC stye cream and warm compress. Prescribed Erythromycin ointment. Advised continuing warm compress. Follow-up scheduled in one week to assess progress. Plan I discussed with the patient the likely diagnosis of a stye. We agreed on a treatment plan involving antibiotic ointment and warm compresses, with a follow- up in one week to monitor progress. I advised the patient to seek urgent care if symptoms worsen, such as increased swelling or vision changes. Medications: New erythromycin 0.5 inches ophthalmic (eye) TID 50 grams 0RF
[2025-01-27 14:59] VITALS: BP 102/66; PULSE 86; TEMP 36.2; O2SAT 98; BMI 31.8
--- OUTSIDE RECORDS SUMMARY | 2025-01-27 16:35 | XMS_ITS | Encounter Summary ---
Author Organization [facility] Address [address] [place] [address] Phone Care Team Providers Care Retail Special Event Associate Name Role Phone Aubrie Levi MD Primary Care Provider Encounter Details Date Type Department Care Team (Late st Contact Info) Description 12/24/[address] [facility] [place] Family Medicine [address] [place] [address] Family Medicine, Physician [address] [place], [place] [address] Social History Tobacco Use Types Packs/Day Years [...] on filedocumented in this encounter Care Teams Retail Special Event Associate Relationship Specialty Start Date End Date Aubrie Levi MD [address] [place] [address] [place] [address] PCP - General 11/14/16 08/26/22 documented as of this encounter
--- OUTSIDE RECORDS SUMMARY | 2025-01-27 16:35 | XMS_ITS | Encounter Summary ---
Author Organization [facility] Address [address] [place], [place] [phone] Phone Care Team Providers Care Polyethylene Bag Machine Operator Name Role Phone Aubrie Levi MD Primary Care Provider Encounter Details Date Type Department Care Team (Late st Contact Info) Description 11/20/2016 Conversion Encounter [facility] [address] [place] [address] Social History Tobacco Use Types Packs/Day Years [...] on filedocumented in this encounter Care Teams Polyethylene Bag Machine Operator Relationship Specialty Start Date End Date Aubrie Levi MD [address] [place] [address] PCP - General 11/14/16 08/26/22 documented as of this encounter
--- OUTSIDE RECORDS SUMMARY | 2025-01-27 16:35 | XMS_ITS | Encounter Summary ---
Author Organization [facility] Address [address] [place] [address] Phone Care Team Providers Care Mine Captain Name Role Phone Aubrie Levi MD Primary Care Provider Encounter Details Date Type Department Care Team (Late st Contact Info) Description 08/20/2015 Documentation [facility] [place] [address] [place] [address] Family Medicine, Physician [address] [place], [place] [address] Social History Tobacco Use Types Packs/Day Years [...] on filedocumented in this encounter Care Teams Mine Captain Relationship Specialty Start Date End Date Aubrie Levi MD [address] [place] [address] [place] [address] PCP - General 11/14/16 08/26/22 documented as of this encounter
--- OUTSIDE RECORDS SUMMARY | 2025-01-27 16:35 | XMS_ITS | Encounter Summary ---
Author Organization [facility] Address [address] [place] [address] Phone Care Team Providers Care E Commerce Solution Architect Name Role Phone Aubrie Levi MD Primary Care Provider Encounter Details Date Type Department Care Team (Late st Contact Info) Description 06/11/2016 Documentation [facility] [place] Family Medicine [address] [place] [address] Family Medicine, Physician [address] [place], [place] [address] Social History Tobacco Use Types Packs/Day Years [...] on filedocumented in this encounter Care Teams E Commerce Solution Architect Relationship Specialty Start Date End Date Aubrie Levi MD [address] [place] [address] [place] [id number] PCP - General 11/14/16 08/26/22 documented as of this encounter
--- OUTSIDE RECORDS SUMMARY | 2025-01-27 16:35 | XMS_ITS | Encounter Summary ---
Author Organization [facility] Address [address] [place] [address] Phone Care Team Providers Care Planer Operator Name Role Phone Aubrie Levi MD Primary Care Provider [phone] Encounter Details Date Type Department Care Team (Late st Contact Info) Description 08/07/2009 Documentation [facility] [place] [address] [place] [address] Family Medicine, Physician [address] [place], [place] [address] Social History Tobacco Use Types Packs/Day Years [...] on filedocumented in this encounter Care Teams Planer Operator Relationship Specialty Start Date End Date Aubrie Levi MD [address] [place] [address] [place] [id number] PCP - General 11/14/16 08/26/22 documented as of this encounter
--- OUTSIDE RECORDS SUMMARY | 2025-01-27 16:35 | XMS_ITS | Encounter Summary ---
Author Organization [facility] Address [address] [place] [address] Phone Care Team Providers Care Systems Administration Analyst Name Role Phone Aubrie Levi MD Primary Care Provider Encounter Details Date Type Department Care Team (Late st Contact Info) Description 04/15/2016 Documentation [facility] [place] [address] [place] [address] Family Medicine, Physician [address] [place], [place] [address] Social History Tobacco Use Types Packs/Day Years [...] on filedocumented in this encounter Care Teams Systems Administration Analyst Relationship Specialty Start Date End Date Aubrie Levi MD [address] [place] [address] [place] [address] PCP - General 11/14/16 08/26/22 documented as of this encounter
--- OUTSIDE RECORDS SUMMARY | 2025-01-27 16:35 | XMS_ITS | Data Portability ---
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 This is ball valving in the airway. And definitely causing her hoarseness. She has tried other conservative therapies. 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 She will likely need a week off of work after surgery. -SOFT SUGAR OPERATOR HEAD referral for postoperative therapy -Likely will need PPI postoperatively for 6 weeks as well as steroid taper. -Likely will need Tylenol 3 with codeine for 3 days after surgery Surgical discussion: After reviewing their history and discussing the physical exam, including office fiberoptic laryngoscopy, I recommend we proceed to the operating room for direct laryngoscopy with removal of right vocal fold lesion and bilateral vocal fold injection with Decadron. Risks include bleeding, infection, pain, airway fire, vocal changes, airway compromise, need for subsequent airway intervention, and damage to surrounding structures, including the lips, teeth, gums, tongue, palate, oropharynx, larynx, and trachea. If biopsy of the vocal cords is performed, there is a risk of scarring, temporary or permanent dysphonia, or the need for further airway-related procedures. [email or web address] Not available 01/05/2025 10:39:11 Plan of Treatment Reminders Order Date Submit Date Provider Last Modified By Organization Details Last Modified Time Details Appointments SURGERY 90 2024 09:00A Nemo Aponte, DO Not available Not available Not available Post Op 2025 02:45P M Rico Aponte, DO Not available Not available Not available Lab None recorded. Referral speech therapy referral - Speech therapy status post right vocal fold polyp removal, teacher 2024 025 [email or web address] Savannah Valerio, [address], [place], [address], 01/27/2025 07:58:46 Procedures None recorded. Surgeries laryngosc opy, direct, operative , with excision of tumor and/or stripping of vocal cords or epiglotti s (SURG) 2024 025 [email or web address] Not available 01/05/2025 11:15:23 laryngosc opy, direct, with injection into vocal cord(s), therapeut ic; with operating microscpe or telescope (SURG) 2024 025 [email or web address] Not available 01/05/2025 11:15:23 Imaging None recorded. Medication Orders None recorded. Patient TargetsNo targets recorded. Patient InstructionsNo instructions recorded. Reason for Referral Speech therapy status post r ight vocal fold polyp removal, teacher Referring Physician: Rico Aponte, Otolaryngology, Encounter Date: 01/05/2025 Problems Name Problem SNOMED Code Status Onset Date Resolution Date Notes Provider Name and Address Organization Details Recorded Time Dysphonia 41445327 Active 025 Rico Aponte DO [address] [address], [place], [phone], [place] [facility] 5 08:29:22 Mass of salivary gland 481829488 Active 025 Rico Aponte DO [address] [address], [place], [address], [place] [facility] 5 08:29:31 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 Procedures Surgical History Date Name Laterality Status Provider Name and Address Organization Details Recorded Time 01/05/2025 FOL_Reflux _DHL completed Rico Aponte DO [address] [place] [address], [place], [address], [place] [facility] 01/05/2025 10:36:50 Imaging Results None recorded. Procedure Notes None recorded. Medical Equipment None Reported. Medications Name Sig Start Date Stop Date Status Note LastModified by Organization Details LastModified Time acetaminoph en 325 mg tablet TAKE 3 TABLETS BY MOUTH EVERY 6 HOURS,X7 DAYS,INST R:NOT TO EXCEED 4000 MG/DAY 01/05 completed Not Available Not Available Not Available ibuprofen 600 mg tablet PLEASE SEE ATTACHED FOR DETAILED DIRECTION S 01/05 completed Not Available Not Available Not Available amoxicillin 875 mg-potassiu m clavulanate 125 mg tablet TAKE 1 TABLET BY MOUTH EVERY 12 HOURS FOR 7 DAYS 12/20 completed Not Available Not Available Not Available oxycodone 5 mg tablet PLEASE SEE ATTACHED FOR DETAILED DIRECTION S 01/05 completed Not Available Not Available Not Available Vitals Date Recorded Body height Body mass index (BMI) Body weight Provider Name and Address Organization Details Last Updated DateTime 01/05/2025 160.02 cm 29.8 kg/m2 47395.52 g Drea Berrios [place] [facility] 01/05/2025 10:16:17 Social History None recorded. Functional Status None recorded. Mental Status None recorded. Family History Nothing Reported. Medical History Condition Response Anxiety Y Depression Y Gynecological HistoryNo gynecological history recorded. Obstetrics History GPAL:G 0 P 0 0 0 0 Past Encounters Encounter ID Performer Location Encounter Start Date Encounter Closed Date Diagnosis/Indication Diagnosis SNOMED-CT Code Diagnosis ICD10 Code Diagnosis IMO Codes Diagnosis Note [id number] Rico Aponte DO [facility] [address] [phone] 01/05/2025 10:02:22 01/05/2025 10:36:39 Dysphonia 40833218 R49.0 60920 Mass of sa livary gland 175181771 K11.8 0939072 Right, likely reactive, provided reassuranc e Lesion of vocal cord 301 007001 J38.3 5825699 Right vocal fold polyp, left sulcus Health Concerns Section Related Observation LastModified by Organization Detai ls LastModified Time None Recorded Concern Status LastModified by Organization Details LastModified Time None Recorded Advance Directives Directive None Recorded Payers Insurance Date Sequence Insurance Name Policy Number Policy Roth Covered Member ID Roth Member ID Guarantor Name 01/12/2025 1 [facility] ([facility]) [id number] Esa Oh [id number] Dixie Oh Notes Date Note Type Note Provider Name and Address Organization Details Recorded Time 01/05/2025 text/html The patient presents with concerns of speech. This has been going on for: months. They describe their speech as hoarse. They deny vocal trauma. 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 They deny difficulty with solids in the oropharyngeal phaseDenies fevers, chills, unexpected weight loss, night sweats, neck pain, neck swelling, heartburnAnti-Reflu x thearpy: NoneThey endorse a chronic globus sensation in the throat.They deny a chronic cough, this is non-violentGI Provider/workup: NoneSLP therapy: NoneSocial Hx: None Record/Referral Review: Seen on12/08/2024 h istory of anxiety and obesity with concerns for hoarseness and/or vocal fold dysfunction this been going on for months. Patient was seen by the primary provider for evaluation of a right submandibular mass. They had a prior ultrasound that showed a 2.2 x 1.1 x 0.7 cm hypoechoic ovoid mass which is likely a lymph node. She also did previous barium swallow study that was normal. Rico Aponte, DO [address] [facility],[address] [address], [place], [address], [place] [facility] 01/05/2025 10:40:16 OBGyn Episode No OBEpisode recorded.
--- OUTSIDE RECORDS SUMMARY | 2025-01-27 16:35 | XMS_ITS | Encounter Summary ---
Author Organization [facility] Address [address] [place] [address] Phone Care Team Providers Care Change Control Analyst Name Role Phone Aubrie Levi MD Primary Care Provider Encounter Details Date Type Department Care Team (Late st Contact Info) Description 06/14/2010 Documentation [facility] Family Medicine [address] [place] [address] Family Medicine, Physician [address] [place], [place] [address] Social History Tobacco Use Types Packs/Day Years [...] on filedocumented in this encounter Care Teams Change Control Analyst Relationship Specialty Start Date End Date Aubrie Levi MD [address] [place] [address] [place] [address] PCP - General 11/14/16 08/26/22 documented as of this encounter
--- OUTSIDE RECORDS SUMMARY | 2025-01-27 16:35 | XMS_ITS | Clinical Summary ---
Author Organization [facility] Address [address] [place] [address] Phone Care Team Providers Care Hotel Clerk Name Role Phone Unavailable Primary Care Provider [...] history of Obesity, Family history of Sudden /ND under age 55 Paternal Grandfather Paternal Grandmother [...] 08/02/2022 08/02/2012, 12/31/2005, 01/28/2002, Additional history exists Influenza Vaccines (#1) 2024 06/11/19, 12/13/2015, 02/02/2015, Additional history exists COVID-19 Vaccine ( season) 2024 07/01/2021, 06/10/2021 Hepatitis B Vaccines Completed 03/31/2001, 01/27/2001, 2000 [...] Completed 06/10/2021, 09/21/2019 Procedures * Due to [facility] law, this organization might not be sharing sensitive test results. Procedure Name Priority Date/Time Associated Diagnosis Comments CHLAMYDIA AND GONORRHEA, AMPLIFIED Routine 06/10/2021 10:48 AM EST Screening for chlamydial disease from Last 3 Months or Most Recently Relevant to Health Maintenance Results * Due to [place] [employer] law, this organization might not be sharing sensitive test results. * Chlamydia and Gonorrhoea, Amplified (Urine) (06/10/2021 10:48 AM EST) Chlamydia Trachomatis, DNA Probe NEGATIVE (NEG) [facility] Comment: No Chlamydia Trachomatis RNA detected in this patient's sample (REFERENCE RANGE/NORMAL VALUE: NOT DETECTED) Note: This test uses neck band operator- mediated amplification method to detect rRNA from C. Trachomatis URINE GC AMP PROBE NEGATIVE (NEG) [facility] Comment: No Neisseria Gonorrhoeae RNA detected in this patient's sample (REFERENCE RANGE/NORMAL VALUE: NOT DETECTED) NOTE: This test uses neck band operator-mediated amplification method to detect rRNA from N.Gonorrhoeae. [...] without risk of sexual abuse. Consult the [facility] if needed. Contact phone number . Therapeutic failure or success cannot be determined with the Aptima Combo2 assay since nucleic acid may persist following appropriate antimicrobial therapy. The Centers for Disease Control and Prevention (CDC) recommends confirmatory retesting using culture or a different nucleic acid amplification test when positive results occur, if indicated. Testing performed or reported by [facility], a Service of [facility], [address] [place] [address] MD, Pump Stitcher [facility]# [id number] Urine (Urine, Random (not clean void)) 06/10/2021 10:48 AM EST 06/10/2021 6:41 PM EST us Aubrie Levi MD LAB MICROBIOLOGY - GENERAL ORDERABLES Final Result [facility] from Last 3 Months or Most Recently Relevant to Health Maintenance [facility]
--- OUTSIDE RECORDS SUMMARY | 2025-01-27 16:35 | XMS_ITS | Encounter Summary ---
Author Organization [facility] Address [address] [place] [address] Phone Care Team Providers Care Tank Truck Operator Name Role Phone Aubrie Levi MD Primary Care Provider Encounter Details Date Type Department Care Team (Late st Contact Info) Description 04/20/2013 Documentation [facility] [place] [address] [place] [address] Family Medicine, Physician [address] [place], [place] [address] Social History Tobacco Use Types Packs/Day Years [...] on filedocumented in this encounter Care Teams Tank Truck Operator Relationship Specialty Start Date End Date Aubrie Levi MD [address] [place] [address] [place] [address] PCP - General 11/14/16 08/26/22 documented as of this encounter
--- OUTSIDE RECORDS SUMMARY | 2025-01-27 16:35 | XMS_ITS | Encounter Summary ---
Author Organization [facility] Address [address] [place] [address] Phone Care Team Providers Care Hatchery Man Name Role Phone Aubrie Levi MD Primary Care Provider [phone] Encounter Details Date Type Department Care Team (Late st Contact Info) Description 12/24/2012 Documentation [facility] [place] Family Medicine [address] [place] [address] Family Medicine, Physician [address] [place], [place] [phone] Social History Tobacco Use Types Packs/Day Years [...] on filedocumented in this encounter Care Teams Hatchery Man Relationship Specialty Start Date End Date Aubrie Levi MD [address] [place] [address] [place] [address] PCP - General 11/14/16 08/26/22 documented as of this encounter
--- OUTSIDE RECORDS SUMMARY | 2025-01-27 16:35 | XMS_ITS | Encounter Summary ---
Author Organization [facility] Address [address] [place] [address] Phone Care Team Providers Care Push Bench Operator Helper Name Role Phone Aubrie Levi MD Primary Care Provider Encounter Details Date Type Department Care Team (Late st Contact Info) Description 03/12/2010 Documentation [facility] [place] Family Medicine [address] [place] [address] Family Medicine, Physician [address] [place], [place] [phone] Social History Tobacco Use Types Packs/Day Years [...] on filedocumented in this encounter Care Teams Push Bench Operator Helper Relationship Specialty Start Date End Date Aubrie Levi MD [address] [place] [address] [place] [address] PCP - General 11/14/16 08/26/22 documented as of this encounter
== END 2025-01-27 15:27 | disposition home or self-care (01) ==
LOC: HO.HMCH 14:52
PROVIDERS: Visit Provider Internal Medicine
DX: H00.011 Hordeolum externum right upper eyelid (principal)

== ENCOUNTER 2025-02-03 15:21 | Outpatient (AMB) | payer BC, SELFPAY ==
[2025-02-03 15:27] VITALS: BP 130/90; PULSE 84; TEMP 36.3; O2SAT 98; BMI 32.1
--- NOTE | 2025-02-03 15:27 | MHC.PC.OV ---
Vital Signs 02/03/25 15:27 Height 5 ft 2 in Weight 175 lb 8 oz BMI 32.1 BP 130/90 H Blood Pressure Location Lt brachial Position Sitting Pulse 84 Pulse Source Pulse Oximeter Temp 97.3 F Temp Source Temporal Artery Scan Pulse Oximetry (%) 98 Oxygen Delivery Method Room Air Intake Visit Reasons: 1 week f/u Intake Note: Patient complains of Stye on right eye. Licensed Club Manager Required: No Gerentological Physiotherapist: Not Required per policy Accompanied by: Self / Same As Patient Allergies No Known Allergies Allergy (Verified 02/03/25 15:28) Medication List - Last Reconciled 02/03/25 by Ashlee Aj MD bacitracin 1 appl ophthalmic (eye) Q8H 7 days erythromycin 0.5 inches ophthalmic (eye) TID Tobacco use date assessed: 02/03/25 Dental Screening Dental Screen Date: 02/03/25 Did you have a dental visit in the last 12 months?: Yes Did you have a dental problem in the last 6 months where you did not have access to dental care?: No Was dental information given to patient?: Patient has dentist HPI HPI Comments History of Present Illness Details The patient is a 24-year-old female presenting for follow-up for blepheritis. She reports that the lesion has been present for two weeks, has popped in three different places, and is improving but has not fully resolved with the use of erythromycin cream. The patient notes that there was initially no pain, but she experiences pain when the lesion pops. 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 1. Little interest or pleasure in doing things: several days 2. Feeling down, depressed, or hopeless: several days 3. Trouble falling or staying asleep, or sleeping too much: several days 4. Feeling tired or having little energy: not at all 5. Poor appetite or overeating: more than half the days 6. Feeling bad about yourself - or that you are a failure or have let yourself or your family down: several days 7. Trouble concentrating on things, such as reading the newspaper or watching television: not at all 8. Moving or speaking so slowly that other people could have noticed. Or the opposite - being so fidgety or restless that you have been moving around a lot more than usual: not at all 9. Thoughts that you would be better off or of hurting yourself in some way: not at all Total score: 6 Source: Developed by Drs. Diaz Lowe, Toyin Mart, Eduardo Grover and colleagues, with an educational elkin from [employer]. Thrive Questionnaire Date Thrive assessed: 10/06/24 I am a: Patient What is your living situation today?: I have a steady place to live Within the past 12 months, did the food you bought not last and you didn't have the money to get more?: Never true Within the past 12 months, did you worry whether your food would run out before you got money to buy more?: Never true Do you have trouble paying for medicines?: No Do you have trouble getting transportation to medical appointments?: No Do you have trouble paying your heating and electricity bill?: No Do you have trouble taking care of your child, family member or friend?: No Do you have trouble with day-to-day activities such as bathing, preparing meals, shopping, managing finances, etc.?: No Are you currently unemployed and looking for a job?: No Are you interested in more education?: Yes Please select the resources that you would like help with: Education Currently or been in a relationship where the following occur: No concerns reported THRIVE Score: 0 AUDIT C Alcohol Use Questionnaire (AUDIT-C) 1. How often do you have a drink containing alcohol?: Monthly or less 2. How many drinks containing alcohol do you have on a typical day when you are drinking?: 3 or 4 3. How often do you have six or more drinks on one occasion?: Never Total Score: 2 KASSI-7 AMB Questionnaire KASSI-7 Date KASSI - 7 assessed: 02/03/25 Feeling nervous, anxious, or on edge: 1 = Several days Not being able to stop or control worryin = Several days Worrying too much about different things: 1 = Several days Trouble relaxin = Several days Being so restless that it is hard to sit still: 0 = Not at all Becoming easily annoyed or irritable: 3 = Nearly every day Feeling afraid as if something awful might happen: 0 = Not at all Total KASSI-7 score (0-4 normal; 5-9 mild; 10-14 moderate; 15-21 severe): 7 Source: Developed by Drs. Diaz Lowe, Toyin Mart, Eduardo Grover and colleagues, with an educational elkin from [employer]. Review of Systems Const Details: As per HPI. Physical exam (Primary Care) Vital Signs: Last Vital Signs Temp 97.3 F 02/03/25 15:27 Pulse 84 02/03/25 15:27 BP 130/90 H 02/03/25 15:27 Pulse Ox 98 02/03/25 15:27 Oxygen Delivery Method Room Air 02/03/25 15:27 BMI result Body Mass Index 32.1 Tobacco/Smoking Status: Tobacco use Status Tobacco use date assessed 02/03/25 02/03/25 15:31 Patient Tobacco Use Status Never used Tobacco 02/03/25 15:28 e-Cigarette/Vaping Use Never Used 02/03/25 15:28 PHQ-9: PHQ-9 Score PHQ-9: Total score 6 02/03/25 15:31 Thrive Assessment: Date of Thrive Assessment Date Thrive assessed 10/06/24 02/03/25 15:28 Currently or been in a relationship where the following occur: No concerns reported Const Other: Pertinent findings are in BOLD GENERAL APPEARANCE NAD, activity normal for age, well developed/ well nourished, no cyanosis, pallor, or diaphoresis. EYES lids/conjunctiva normal. EARS/NOSE/THROAT Mucous membranes moist, nares normal, lips/teeth normal uvula midline without oral pharyngeal erythema, exudate or swelling TMs normal bilaterally. No lymphangitis/lymphedema. Eye blepheritis improved since last time in clinic, small lesion still present. HEAD/NECK normocephalic atraumatic, no facial trauma, neck is supple. RESPIRATORY respiratory effort normal, speaks in full sentences, no tripod position, no accessory muscle use. Lungs clear to auscultation without rhonchi, wheezes, rales CARDIAC Regular rate and rhythm, no edema. ABDOMINAL Soft, ND/NT. No evidence of fluid wave. No pulsatile masses on exam, rebound tenderness, Huertas sign or pain over Mcburney's point. MUSCLES/EXTREMITIES No abnormal range of motion, no swelling. SKIN Warm, pink and dry. No rashes, dermatoses, petechiae or lesions. NEUROLOGICAL Speech is clear and appropriate. Normal level of consciousness. Gait and coordination are normal. 5/5 strength in all extremities. PSYCH Normal mood and affect. Judgement/competence is appropriate Coding Level of Care Code Est Pt Level 3 (90040) Diagnoses Acute blepharitis H01.009 Time Spent (min) 20 Assessment & Plan Assessment & Plan (1) Acute blepharitis: Code(s): H01.009 - Unspecified blepharitis unspecified eye, unspecified eyelid Category: Medical Plan: - The patient's nasal lesion has shown slow improvement and has not fully resolved after two weeks of treatment with erythromycin. - BActracin ointment was prescribed. - The patient is instructed to discontinue the current cream and start the new one, applying it up to three times daily for seven days. - Advised to continue warm compresses and keep the area clean. - The patient should follow up as needed. Plan I noted that the patient's lesion on her right eye looks better, but she reported that it has been present for two weeks and is not fully resolved. I am prescribing Bacitracin and have instructed her to discontinue the erythromycin. The new medication should be applied up to three times per day for seven days. I also advised her to continue with warm compresses, cleaning the area, and to follow up as needed. Medications: New bacitracin 1 appl ophthalmic (eye) Q8H 3.5 grams 0RF 7 days
--- OUTSIDE RECORDS SUMMARY | 2025-02-03 15:29 | XMS_ITS | Encounter Summary ---
Author Organization [facility] Address [address] [place] [address] Phone Care Team Providers Care Machine Or Machinery Mechanic Name Role Phone Aubrie Levi MD Primary Care Provider Encounter Details Date Type Department Care Team (Late st Contact Info) Description 03/12/2010 Documentation [facility] [place] [address] [place] [address] Family Medicine, Physician [address] [place], [place] [address] Social History Tobacco Use Types Packs/Day Years [...] on filedocumented in this encounter Care Teams Machine Or Machinery Mechanic Relationship Specialty Start Date End Date Aubrie Levi MD [address] [place] [address] [place] [address] PCP - General 11/14/16 08/26/22 documented as of this encounter
--- OUTSIDE RECORDS SUMMARY | 2025-02-03 15:29 | XMS_ITS | Encounter Summary ---
Author Organization [facility] Address [address] [place] [address] Phone Care Team Providers Care Unarmed Security Guard Name Role Phone Aubrie Levi MD Primary Care Provider Encounter Details Date Type Department Care Team (Late st Contact Info) Description 12/24/2012 Documentation [facility] [place] Medicine [address] [place] [address] Family Medicine, Physician [address] [place], [place] [address] Social History Tobacco Use Types Packs/Day Years [...] on filedocumented in this encounter Care Teams Unarmed Security Guard Relationship Specialty Start Date End Date Aubrie Levi MD [address] [place] [address] [place] [address] PCP - General 11/14/16 08/26/22 documented as of this encounter
--- OUTSIDE RECORDS SUMMARY | 2025-02-03 15:29 | XMS_ITS | Encounter Summary ---
Author Organization [facility] Address [address] [place], [place] [phone] Phone Care Team Providers Care Chainstitch Hemmer Name Role Phone Aubrie Levi MD Primary Care Provider [phone] Encounter Details Date Type Department Care Team (Late st Contact Info) Description 11/20/2016 Conversion Encounter [facility] [place] [address] [place] [address] Social History Tobacco Use Types Packs/Day Years [...] on filedocumented in this encounter Care Teams Chainstitch Hemmer Relationship Specialty Start Date End Date Aubrie Levi MD [address] [place] [address] PCP - General 11/14/16 08/26/22 documented as of this encounter
--- OUTSIDE RECORDS SUMMARY | 2025-02-03 15:29 | XMS_ITS | Encounter Summary ---
Author Organization [facility] Address [address] [place] [address] Phone Care Team Providers Care Instructor Business Education Name Role Phone Aubrie Levi MD Primary Care Provider Encounter Details Date Type Department Care Team (Late st Contact Info) Description 08/07/2009 Documentation [facility] [place] [address] [place] [address] Family Medicine, Physician [address] [place], [place] [address] Social History Tobacco Use Types Packs/Day Years [...] on filedocumented in this encounter Care Teams Instructor Business Education Relationship Specialty Start Date End Date Aubrie Levi MD [address] [place] [address] [place] [address] PCP - General 11/14/16 08/26/22 documented as of this encounter
--- OUTSIDE RECORDS SUMMARY | 2025-02-03 15:29 | XMS_ITS | Encounter Summary ---
Author Organization [facility] Address [address] [place] [address] Phone Care Team Providers Care Plater Production Name Role Phone Aubrie Levi MD Primary Care Provider Encounter Details Date Type Department Care Team (Late st Contact Info) Description 12/24/2012 Documentation [facility] [place] [address] [place] [address] Family Medicine, Physician [address] [place], [place] [address] Social History Tobacco Use Types Packs/Day Years [...] on filedocumented in this encounter Care Teams Plater Production Relationship Specialty Start Date End Date Aubrie Levi MD [address] [place] [address] [place] [address] PCP - General 11/14/16 08/26/22 documented as of this encounter
--- OUTSIDE RECORDS SUMMARY | 2025-02-03 15:29 | XMS_ITS | Encounter Summary ---
Author Organization [facility] Address [address] [place] [address] Phone Care Team Providers Care Experienced Truck Driver Name Role Phone Aubrie Levi MD Primary Care Provider [phone] Encounter Details Date Type Department Care Team (Late st Contact Info) Description 04/20/2013 Documentation [facility] [place] [address] [place] [address] Family Medicine, Physician [address] [place], [place] [address] Social History Tobacco Use Types Packs/Day Years [...] on filedocumented in this encounter Care Teams Experienced Truck Driver Relationship Specialty Start Date End Date Aubrie Levi MD [address] [place] [address] [place] [address] PCP - General 11/14/16 08/26/22 documented as of this encounter
--- OUTSIDE RECORDS SUMMARY | 2025-02-03 15:29 | XMS_ITS | Encounter Summary ---
Author Organization [facility] Address [address] [place] [address] Phone Care Team Providers Care Hand Cloth Folder Name Role Phone Aubrie Levi MD Primary Care Provider Encounter Details Date Type Department Care Team (Late st Contact Info) Description 04/15/2016 Documentation [facility] [place] [address] [place] [address] Family Medicine, Physician [address] [place], [place] 9[address] Social History Tobacco Use Types Packs/Day Years [...] on filedocumented in this encounter Care Teams Hand Cloth Folder Relationship Specialty Start Date End Date Aubrie Levi MD [address] [place] [address] [place] [address] PCP - General 11/14/16 08/26/22 documented as of this encounter
--- OUTSIDE RECORDS SUMMARY | 2025-02-03 15:29 | XMS_ITS | Encounter Summary ---
Author Organization [facility] Address [address] [place] [address] Phone Care Team Providers Care Piping Supervisor Name Role Phone Aubrie Levi MD Primary Care Provider Encounter Details Date Type Department Care Team (Late st Contact Info) Description 06/11/2016 Documentation [facility] [place] [address] [place] [address] Family Medicine, Physician [address] [place], [place] [address]85[address] Social History Tobacco Use Types Packs/Day Years [...] on filedocumented in this encounter Care Teams Piping Supervisor Relationship Specialty Start Date End Date Aubrie Levi MD [address] [place], [place] [address] [address] PCP - General 11/14/16 08/26/22 documented as of this encounter
--- OUTSIDE RECORDS SUMMARY | 2025-02-03 15:29 | XMS_ITS | Data Portability ---
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 This is ball valving in the airway. And definitely causing her hoarseness. She has tried other conservative therapies. 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 She will likely need a week off of work after surgery. -ADZ WORKER referral for postoperative therapy -Likely will need [...] teacher 2024 025 [email or web address] Savannah Valerio, [address], [place], [address], 01/27/2025 07:58:46 Procedures None recorded. 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 Procedures Surgical History Date Name Laterality Status Provider Name and Address Organization Details Recorded Time 01/05/2025 FOL_Reflux _DHL completed Rico Aponte DO [address] [place] [address], [place], [address], [place] [facility] 01/05/2025 10:36:50 Imaging Results None recorded. [...] Updated DateTime 01/05/2025 160.02 cm 29.8 kg/m2 52986.52 g Drea Berrios [place] [facility] 01/05/2025 10:16:17 Social History None recorded. [...] ICD10 Code Diagnosis IMO Codes Diagnosis Note 11300 Rico Aponte DO [facility] [address] [address] 01/05/2025 10:02:22 01/05/2025 10:36:39 Dysphonia 60773423 R49.0 56553 Mass of sa livary gland 684876381 K11.8 [id number] Right, likely reactive, provided reassuranc e Lesion of vocal cord 301 900856 J38.3 [id number] Right vocal fold polyp, left sulcus Health Concerns Section Related Observation LastModified by Organization Detai ls LastModified Time None Recorded Concern Status LastModified by Organization Details LastModified Time None Recorded Advance Directives Directive None Recorded Payers Insurance Date Sequence Insurance Name Policy Number Policy Roth Covered Member ID Roth Member ID Guarantor Name 01/12/2025 1 [facility] ([facility] [id number] Esa Oh [id number] Dixie Oh Notes Date Note Type [...] that was normal. Rico Aponte, DO [address] [facility],[address] [address], [place], [address], [place] [facility] 01/05/2025 10:40:16 OBGyn Episode No OBEpisode recorded.
--- OUTSIDE RECORDS SUMMARY | 2025-02-03 15:29 | XMS_ITS | Encounter Summary ---
Author Organization [facility] Address [address] [place] [address] Phone Care Team Providers Care Wastewater Design Engineer Name Role Phone Aubrie Levi MD Primary Care Provider Encounter Details Date Type Department Care Team (Late st Contact Info) Description 06/14/2010 Documentation [facility] [place] [address] [place] [address] Family Medicine, Physician [address] [place], [place] [address] Social History Tobacco Use Types Packs/Day Years [...] on filedocumented in this encounter Care Teams Wastewater Design Engineer Relationship Specialty Start Date End Date Aubrie Levi MD [address] [place] [address] [place] [address] PCP - General 11/14/16 08/26/22 documented as of this encounter
--- OUTSIDE RECORDS SUMMARY | 2025-02-03 15:29 | XMS_ITS | Clinical Summary ---
Author Organization [facility] Address [address] [place] [address] Phone Care Team Providers Care Mobile Game Engineer Name Role Phone Unavailable Primary Care Provider [...] history of Obesity, Family history of Sudden /MO under age 55 Paternal Grandfather Paternal Grandmother [...] Completed 06/10/2021, 09/21/2019 Procedures * Due to [facility] law, this organization might not be sharing sensitive test results. Procedure Name Priority Date/Time Associated Diagnosis Comments CHLAMYDIA AND GONORRHEA, AMPLIFIED Routine 06/10/2021 10:48 AM EST Screening for chlamydial disease from Last 3 Months or Most Recently Relevant to Health Maintenance Results * Due to [place] [employer] law, this organization might not be sharing sensitive test results. * Chlamydia and Gonorrhoea, Amplified (Urine) (06/10/2021 10:48 AM EST) Chlamydia Trachomatis, DNA Probe NEGATIVE (NEG) [facility] Comment: No Chlamydia Trachomatis RNA detected in this patient's sample (REFERENCE RANGE/NORMAL VALUE: NOT DETECTED) Note: This test uses information technology architect- mediated amplification method to detect rRNA from C. Trachomatis URINE GC AMP PROBE NEGATIVE (NEG) [facility] Comment: No Neisseria Gonorrhoeae RNA detected in this patient's sample (REFERENCE RANGE/NORMAL VALUE: NOT DETECTED) NOTE: This test uses information technology architect-mediated amplification method to detect rRNA from N.Gonorrhoeae. [...] without risk of sexual abuse. Consult the [facility] if needed. Contact phone number . Therapeutic failure or success cannot be determined with the Aptima Combo2 assay since nucleic acid may persist following appropriate antimicrobial therapy. The Centers for Disease Control and Prevention (CDC) recommends confirmatory retesting using culture or a different nucleic acid amplification test when positive results occur, if indicated. Testing performed or reported by [facility], a Service of [facility], [address] [place] [address] MD, Plate Mill Hand [facility]# [id number] Urine (Urine, Random (not clean void)) 06/10/2021 10:48 AM EST 06/10/2021 6:41 PM EST us Aubrie Levi MD LAB MICROBIOLOGY - GENERAL ORDERABLES Final Result [facility] from Last 3 Months or Most Recently Relevant to Health Maintenance [facility]
--- OUTSIDE RECORDS SUMMARY | 2025-02-03 15:29 | XMS_ITS | Encounter Summary ---
Author Organization [facility] Address [address] [place] [address] Phone Care Team Providers Care Cowlman Name Role Phone Aubrie Levi MD Primary Care Provider Encounter Details Date Type Department Care Team (Late st Contact Info) Description 08/20/2015 Documentation [facility] [place] [address] [place] [address] Family Medicine, Physician [address] [place], [place] [address] Social History Tobacco Use Types Packs/Day Years [...] on filedocumented in this encounter Care Teams Cowlman Relationship Specialty Start Date End Date Aubrie Levi MD [address] [place] [address] [place] [address] PCP - General 11/14/16 08/26/22 documented as of this encounter
== END 2025-02-03 16:17 | disposition home or self-care (01) ==
LOC: HO.HMCH 15:22
PROVIDERS: Visit Provider Internal Medicine
DX: H01.009 Unspecified blepharitis unspecified eye, unspecified eyelid (principal)